=== PATIENT | female | born 1955 | race Caucasian/White ===

== ENCOUNTER 2019-02-07 15:49 | Emergency (ER) | payer BC, MEDICARE, SELFPAY ==
[2019-02-07] VITALS (22 sets, daily range): BP systolic 67–103; BP diastolic 34–72; PULSE 51–62; RESP 11–169; TEMP 35.4–37.1; O2SAT 82–100; BMI 42.2
--- NOTE | 2019-02-07 15:57 | EKG12_ITS ---
Test Reason : SOB Blood Pressure : / mmHG Vent. Rate : 051 BPM Atrial Rate : 051 BPM P-R Int : 180 ms QRS Dur : 080 ms QT Int : 504 ms P-R-T Axes : 039 016 038 degrees QTc Int : 464 ms Sinus bradycardia Low voltage QRS Possible Inferior infarct , age undetermined Cannot rule out Anterior infarct , age undetermined Abnormal ECG Confirmed by SINDHU PACHECO ([id number]), development editor JEREMY HUSSEIN ([id number]) on 02/13/2019 12:11:52 PM Referred By: Confirmed By:SINDHU PACHECO
--- NOTE | 2019-02-07 15:57 | RAD_ITS ---
STUDY: X-RAY CHEST REASON FOR EXAM: Female, 63 years old. Unresponsive TECHNIQUE: AP portable COMPARISON: None. FINDINGS: There is mild pulmonary interstitial edema.. There is no demonstrated pleural abnormality. Heart is enlarged.. Normal mediastinum and dante. Normal visualized pulmonary arteries. Mildly calcified aortic arch and descending thoracic aorta. Dorsal spine demonstrates scoliosis and degenerative change. Normal visualized ribs, clavicles, and shoulders. There is no demonstrated abnormality of the visualized soft tissue structures of the upper abdomen. RAD/Chest 1 View (Portable) IMPRESSION: Mild pulmonary vascular congestion. Electronically Signed: Vineet Fournier MD at 16:38 EDT , Service support ,
[2019-02-07] MEDS: 0.9% Normal Saline 1,000 ML 1000 ML IV ×3 (16:16→17:02)
[2019-02-07] MEDS: Ondansetron 4 MG/2 ML Vial IV (16:17)
[2019-02-07 16:23] LABS: Absolute Lymphocyte Count 2.29 X10^3/uL (0.83-4.51); Absolute Neutrophil Count 15.9 X10^3/uL (2.0-7.7); Basophil# 0.03 X10^3/uL; Basophil% 0.2 % (0-1); Eosinophil# 0.01 X10^3/uL; Eosinophils% 0.1 % (0-5); Hematocrit 17.8 % (37-47); Lymphocyte # 2.29 X10^3/ul (4.0); Lymphocyte % 11.5 % (19-41); Mean Corp Hgb Conc 29.8 g/dL (32-36); Mean Corpuscular Hgb 30.8 pg (27.0-32.0); Mean Corpuscular Volume 103.5 fL (81-99); Mean Platelet Vol. 10.5 fl (6.2-12.0); Monocyte# 0.83 X10^3/uL; Monocyte% 4.2 % (0-10); NRBC Flagged by Analyzer 0.4 % (0-5); Neutrophil # 15.86 X10^3/uL (2.7-7.7); Neutrophil % 79.2 % (47-70); POSITIVE COUNT YES; Platelet Count 283 K/mm3 (150-450); RBC Distribution Width CV 14.2 % (11.6-14.6); Red Blood Count 1.72 M/mm3 (4.2-5.4)
[2019-02-07 16:25] LABS: Differential Indicated SCAN CRITERIA MET
[2019-02-07 16:26] LABS: Hemoglobin 5.3 g/dL (12.0-15.0)
[2019-02-07 16:27] LABS: International Normalized Ratio 1.4; Prothrombin Time (Protime)PT. 17.2 SECONDS (11.7-14.9)
[2019-02-07 16:28] LABS: Partial Thromboplast Time 26.1 Seconds (24.1-36.2)
[2019-02-07 16:39] LABS: Bacteria 0 SEEN /hpf (None Seen); Mucous, Urine 0 SEEN /hpf (<or=2+); Red Blood Cells-Urine 0 SEEN /hpf (0-5); White Blood Cells 0 SEEN /hpf (0-5)
[2019-02-07 16:41] LABS: Lactic Acid 13.2 mmol/L (0.4-2.0)
[2019-02-07 16:43] LABS: AST(SGOT) 144 U/L (15-37); Alanine Aminotransfer ALT/SGPT 153 U/L (13-56); Albumin, Serum 3.1 g/dL (3.2-5.0); Alkaline Phosphatase 56 U/L (45-117); Anion Gap 19 (5-15); BUN 82 mg/dL (7-18); BUN/Creat Ratio 28.3 RATIO (10-20); Bilirubin, Direct 0.23 mg/dL (0.00-0.30); Calcium,Total 8.7 mg/dL (8.5-10.1); Chloride 106 mmol/L (98-107); EST Glomerular Filtration Rate 17 mL/min (>60); Est Glom Filt Rate - Afr Amer 21 mL/min (>60); Globulin 3.1 g/dL (2.2-4.2); Glucose 347 mg/dL (74-106); Lipase 243 U/L (73-393); Potassium 5.7 mmol/L (3.5-5.1); Protein, Total 6.2 g/dL (6.4-8.2); Sodium Level 139 mmol/L (136-145)
--- NOTE | 2019-02-07 16:44 | ED.RN ---
LAB CALLED WITH CRITICAL VALUES FOR PT. LACTIC ACID 13.[address] VALLEJO INFORMED.
[2019-02-07 16:48] LABS: Differential Comment SCANNED
[2019-02-07 16:53] LABS: Color, Urine Yellow (Yellow); Glucose, Dipstick 50 mg/dl (Normal); Ketone-Dipstick Negative (Negative); Leukocyte Esterase-Dipstick Negative /ul (Negative); Nitrite-Dipstick Negative (Negative); Occult Blood-Urine Negative /ul (Negative); Protein-Dipstick 15 mg/dl (Negative); Specific Gravity, Urine 1.015 (1.002-1.030); Urine Bilirubin Dipstick Negative (Negative); Urine Clarity Sl. Cloudy (Clear); Urine Urobilinogen Normal (Normal)
[2019-02-07] MEDS: 0.9% Normal Saline 1,000 ML 999 ML IV ×2 (17:03→18:39)
[2019-02-07 17:04] LABS: Amorphous Sediment 1+ URATE; Squamous Epithelial Cells - UA 0-5 SEEN /hpf (5-10)
--- NOTE | 2019-02-07 17:14 | ED.VISSUMM ---
- ER Visit Summary Date of Service: 02/07/19 Chief Complaint: Unresponsive History of Present Illness: The patient is a 63 F who presents emergency department following an unresponsive episode. Patient reports 3 days of nausea vomiting diarrhea. She denies blood in the vomit but notes the stool is black. Today her found her slumped on the couch and was having difficulty keeping her awake and she was having difficulty mentating. She did not want to come by ambulance so family got in a car and drove her to urgent care. EMS was called for a possible unresponsive episode daughter is not sure if she did consciousness or not. EMS notes that she was hypotensive in the 70s with a heart rate in the 40s. She has a history of coronary artery disease and his heart stents therefore she is on Plavix and aspirin. She is also on a beta-reji. Also noted history of diabetes hypertension high cholesterol. She is a non-smoker and she does not drink alcohol. Physical Examination: Blood pressure 86/45 Septra 97.5 heart rate 60 respirations are 20 pulse ox 95% of the knee Gen: Well-nourished well-developed obese Head: Normocephalic atraumatic Eyes: Perrl EOMI pale conjunctiva ENT: TMs clear no rhinorrhea moist mucous membranes Neck: Supple no lymphadenopathy no JVD nontender CVS: Regular rate bradycardic rhythm no murmurs normal S1-S2 she has decreased capillary refill of the fingers and toes Respiratory: No distress clear to auscultation bilaterally chest nontender Abdomen: Soft nontender nondistended normal bowel sounds no masses Rectal: Black tarry heme positive stool Back: Nontender Extremity: Nontender no edema Skin: She is pale no rash Neuro: alert orientated ?3 patient is globally weak but moves all extremities Psych: Normal affect normal mood Test Results: White count of 20 hemoglobin 5.3. Platelets 283. Creatinine 2.9 BUN of 82 glucose 347 INR 1.4 PTT 26.1. Normal bilirubin. Troponin 0 0.594. Lactic acid 13.2. Chest x-ray negative. EKG sinus bradycardia at a rate of 51 without ectopy. Emergency Department Course and Treatment: Patient received 4 L of IV fluids I typed and crossed for 2 units. Patient was also placed on Protonix bolus and drip. I spoke with Dr. Malik from general surgery who recommends transfer to tertiary care. Patient is a [facility] patient I spoke with family and the patient and they agreed to transfer to [facility]. I contacted [facility] and we are currently awaiting acceptance/bed assignment. Despite over 4 L of fluids and being transfused red blood cells the patient has remained hypotensive. I attempted a right IJ ultrasound-guided central line did not have successful placement. Therefore a right femoral ultrasound-guided central line was placed without any difficulty. Dark blood nonpulsatile was with easily withdrawn from the ports and easily pushed saline flushes. Sutured into place and dressed. She was started on Levophed. Impression: 1. Upper GI bleed 2. Hypovolemic shock 3. Acute renal failure 4. Elevated troponin 5. Critical care time 35 minutes. 6. Right femoral central line by emergency physician This note was generated with [employer] dictation software. It may contain incorrect words, spelling, and punctuation that were not noted in review of the chart prior to signing ED Disposition - Plan for ED Patient: Disposition: [facility] Referrals: Casey Barlow MD [Primary Care Provider] -
--- NOTE | 2019-02-07 17:55 | ED.RN ---
verbal order received from Dr Lopez to run both units of PRBCs at same time.
--- NOTE | 2019-02-07 18:17 | ED.RN ---
no transfusion reaction noted after 15 minutes of first unit infusing. Second unit started per Dr Lopez
--- NOTE | 2019-02-07 18:32 | ED.RN ---
no transfusion reaction noted after 15 minutes of second unit transfusing. Both PRBC infusions increased, will continue to monitor.
[2019-02-07] MEDS: 0.9% Normal Saline 1,000 ML 250 ML IV (19:44)
--- NOTE | 2019-02-07 20:13 | ED.RN ---
Pt left ED at 1950 with both units of PRBC still infusing with transport staff.
--- NOTE | 2019-02-07 20:18 | ED.RN ---
[facility] called and update given to Kimberly HOGAN of the new triple lumen central line placement and start of levophed.
[2019-02-07 20:19] LABS: Reflex Lactate? Y
[2019-02-08 10:16] LABS: Pathologist Review Reviewed
== END 2019-02-07 19:50 | disposition short-term general hospital (02) ==
LOC: ED 16:21
PROVIDERS: Emergency Provider Emergency Medicine; Family Provider Internal Medicine; PCP Internal Medicine
DX: K92.2 Gastrointestinal hemorrhage, unspecified (principal); R57.1 Hypovolemic shock; N17.9 Acute kidney failure, unspecified; I25.10 Atherosclerotic heart disease of native coronary artery without angina pectoris; I10 Essential (primary) hypertension; E78.00 Pure hypercholesterolemia, unspecified; E11.9 Type 2 diabetes mellitus without complications; Z79.02 Long term (current) use of antithrombotics/antiplatelets; Z79.82 Long term (current) use of aspirin; Z95.5 Presence of coronary angioplasty implant and graft; E66.9 Obesity, unspecified; Z79.84 Long term (current) use of oral hypoglycemic drugs
CPT/HCPCS: 36430; 36556; 51702; 71045; 80048; 80076; 81001; 82274; 83605; 83690; 84484; 85025; 85610; 85730; 86850; 86900; 86901; 86920; 86922; 93005; 96361; 96365; 96366; 96375; 99285; J7030; J7040; J7050; P9016; A4216; C1751; J2405; J3490

== ENCOUNTER 2019-03-01 13:50 | Inpatient (IN) | payer BC, MEDICARE, SELFPAY ==
[2019-02-07 15:50] VITALS: BMI 42.2
[2019-03-01 14:05] VITALS: PULSE 80; O2SAT 96
[2019-03-01 14:21] VITALS: BP 180/85; PULSE 88; RESP 20; TEMP 36.8; O2SAT 96; BMI 43.0
[2019-03-01 14:39] VITALS: BMI 43.1
[2019-03-01 16:11] LABS: Bedside Glucose 147 mg/dL (70-110)
[2019-03-01] MEDS: Insulin Lispro 100 UNIT/ML INSULN.PEN 22 UNIT SC (17:35)
[2019-03-01] MEDS: Insulin Lispro 100 UNIT/ML INSULN.PEN SC ×2 (17:36→21:51)
[2019-03-01] MEDS: guaiFENesin 600 MG Tablet 1200 MG PO (17:37)
[2019-03-01] MEDS: BRIMONIDINE 0.2% 5ML BOTTLE 1 DRP LEFT EYE (17:50)
[2019-03-01] MEDS: Dorzolamide HCL/Timolol 10 ml Bottle 1 DRP LEFT EYE (17:50)
--- NOTE | 2019-03-01 20:35 | NURSING ---
Patient's Daughter and Son in law talked to this nurse about patient's breathing at night. According to family she has been monitored and that her O2 will drop into the low 50's at night and patient has to be awaken to get O2 levels to increase. Dr. Pinon notified of this. Continuous pulsox ordered.
[2019-03-01] MEDS: Atorvastatin Calcium 10 MG Tablet PO (20:52)
[2019-03-01] MEDS: Labetalol 200 MG Tablet PO (20:52)
[2019-03-01] MEDS: MELATONIN 3 MG TABLET PO (20:52)
[2019-03-01] MEDS: Latanoprost 0.005% 1 Bottle 1 DRP LEFT EYE (20:56)
[2019-03-01 21:35] LABS: Bedside Glucose 198 mg/dL (70-110)
--- NOTE | 2019-03-01 21:40 | RAD_ITS ---
STUDY: X-RAY - ABDOMEN/PELVIS REASON FOR EXAM: Female, 63 years old. Constipation TECHNIQUE: KUB COMPARISON: None. FINDINGS: Normal visualized lung bases. There is moderate colonic fecal load. There is mild distention of the stomach. There is no evidence for bowel obstruction.. There is no demonstrated free abdominal air. The visualized liver, spleen and kidneys are grossly normal in size and morphology. Normal soft tissue structures. There are degenerative changes of the lumbar spine and pubic symphysis. There is lumbar spine levoscoliosis. RAD/Abdomen Single View IMPRESSION: Moderate colonic fecal load Mild distention of the stomach Degenerative changes of the lumbar spine and pubic symphysis Lumbar spine levoscoliosis Electronically Signed: London Sales, at 5:00 EDT Tel , Service support ,
--- NOTE | 2019-03-01 21:43 | HP.PCM_ITS ---
Problem List (1) Debility Status: Acute (2) Coronary artery disease Status: Chronic (3) Diabetes mellitus Status: Chronic (4) Hyperlipidemia Status: Chronic (5) Obstructive sleep apnea Status: Chronic (6) Body mass index (BMI) 40.0-44.9, adult Status: Chronic (7) Chronic diastolic (congestive) heart failure Status: Chronic (8) Glaucoma Status: Chronic (9) Asthma Status: Chronic (10) Acute respiratory failure Status: Acute (11) Unresponsive Status: Acute (12) Gastrointestinal bleed Status: Acute (13) Acute kidney injury Status: Acute (14) Anemia Status: Acute (15) NSTEMI (non-ST elevated myocardial infarction) Status: Acute (16) Hypovolemic shock Status: Acute (17) PEA (Pulseless electrical activity) Status: Acute (18) Diabetic ketoacidosis Status: Acute (19) Cardiac shock syndrome Status: Acute (20) Aspiration pneumonia Status: Acute (21) E. coli UTI Status: Acute History of Present Illness Date of Admission: 03/01/19 Chief Complaint: Here for rehabilitation, strengthening, prior to discharge home with . The patient is a 63 year old Female with below past medical history presented to [facility] Emergency Department 02/07/2019 with unresponsiveness. 02/07/2019 EKG sinus bradycardia, low voltage QRS, possible inferior infarct, age undetermined, cannot rule out anterior infarct, age undetermined. 02/07/2019 Chest X-ray mild pulmonary vascular congestion. Unresponsive episode, 3 days of nausea, vomiting, diarrhea. Stool black, found slumped on couch. Blood pressure 70, heart rate 40, Stool positive for blood. WBC 20, Hemoglobin 5.3, Cr 2.9, BUN 82, Glucose 347. INR 1.4, Troponin 0.594, Lactic acid 13.2. 4 liters IV fluids, type and cross 2 units PRBC, Protonix bolus, then drip. Hypotensive after 4 liters IV fluids, 2 units PRBC transfusion. Right femoral line placed, Levophed started. Transfer to [facility]. 02/07/2019 Admit to [facility]. Hemoglobin stable after 2 units PRBC transfusion. EGD negative for bleeding source. 02/10/2019 Discharged from [facility]. 02/16/2019 Gassy abdominal pain, Glucose 400, BP 65/45. 02/16/2019 [place] [facility]. PEA arrest x 2, CPR, Epi x 2, Atropine given. Levophed to maintain blood pressure 110 systolic. Intubated, transfused trauma blood. 02/18/2019 Admit to [facility] MICU. Treated for DKA with insulin protocol. 02/19/2019 CT chest showed aspiration pneumonia. 02/20/2019 E. Coli Urinary tract infection treated with Ceftriaxone. 02/21/2019 Transfused 1 unit PRBC. 02/22/2019 Amlodipine 5MG added for hypertension. 02/24/2019 Fever 38.2, Empiric Cefepime, Flagyl. CT chest showed improvement of perihilar, basilar opacities. 02/26/2019 Finished Cefepime. 02/28/2019 PET perfusion/stress abnormal. Recommend outpatient cardiac catheterization. 03/01/2019 Admit to TCU with debility, here for rehabilitation, strengthening, prior to discharge home with . Past Medical History Past Medical History (Chronic Problems): Chronic Problems Coronary artery disease (Chronic) Diabetes mellitus (Chronic) Hyperlipidemia (Chronic) Obstructive sleep apnea (Chronic) Body mass index (BMI) 40.0-44.9, adult (Chronic) Chronic diastolic (congestive) heart failure (Chronic) Glaucoma (Chronic) Asthma (Chronic) Allergies amoxicillin Allergy (Verified 02/07/19 15:55) Hives Sulfa (Sulfonamide Antibiotics) Allergy (Verified 02/07/19 15:55) Hives quinapril [From Accupril] Adverse Reaction (Verified 02/07/19 15:55) Other rosiglitazone [From Avandia] Adverse Reaction (Verified 02/07/19 15:55) Other Home Medications: Ambulatory Orders Medication Instructions Recorded Albuterol Inhaler [Ventolin Hfa 2 puff INHALATION Q4H PRN PRN 05/29/16 (SP)] Aspirin [Aspirin, Baby] 1 tablet PO DAILY 05/29/16 Brimonidine Tartrate 0.2% 1 drop LEFT EYE BID 05/29/16 [Brimonidine 0.2% 5Ml Bottle] Centrum Silver Tablet 1 tab PO DAILY 05/29/16 Cholecalciferol (Vitamin D3) 2 tab PO DAILY 05/29/16 [Vitamin D3] Clopidogrel Bisulfate [Plavix] 75 mg PO DAILY 05/29/16 Dorzolamide HCl/Timolol Maleat 1 drop LEFT EYE Q12H PRN 05/29/16 [Dorzolamide-Timolol Eye Drops] Folic Acid 1 mg PO DAILY@0800 05/29/16 Insulin Glargine,Hum.rec.anlog 55 units SQ QHS 05/29/16 [Lantus] Latanoprost 0.005% [Xalatan 1 drop LEFT EYE QHS 05/29/16 Opthalmic] Atorvastatin Calcium [Lipitor] 10 mg PO QHS 02/07/19 Furosemide 40 mg PO DAILY 02/07/19 Liraglutide [Victoza 3-Roman] 1.8 mg SUBCUT DAILY 02/07/19 Losartan Potassium [Cozaar] 100 mg PO DAILY 02/07/19 Amlodipine Besylate [Norvasc] 10 mg PO DAILY 03/01/19 Guaifenesin [Mucinex] 1,200 mg PO Q12H 03/01/19 Insulin Lispro [Humalog KwikPen] 14 unit SQ BREAKFAST 03/01/19 Insulin Lispro [Humalog KwikPen] 22 unit SQ 1200,1700 03/01/19 Labetalol [Trandate] 200 mg PO Q8H 03/01/19 Melatonin 3 mg PO QHS 03/01/19 Pantoprazole Sodium [Protonix] 40 mg PO DAILY 03/01/19 Polyethylene Glycol 3350 [Miralax] 17 gm PO DAILY 03/01/19 Sennosides [Senna] 8.6 mg PO BID 03/01/19 Sodium Chloride 0.65% [[place] Nasal 2 spray NASAL BID PRN PRN 03/01/19 [place]] Sodium Chloride For Inhalation 4 ml IH BID 03/01/19 [Hyper-Russell] Timolol 0.5% [Timoptic] 1 drp LEFT EYE BID 03/01/19 Triamcinolone Acetonide [Nasacort 2 spray NASAL DAILY 03/01/19 Aq Nasal [place]] Surgical History: angioplasty - stent x 4., cataract, - - , multiple eye surgeries. 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 Lives: Spouse/ Significant Other Smoking Status: Never smoker Tobacco Use: Non-smoker Alcohol: None Drugs: None - *Family History Maternal History Items: No pertinent history Paternal History Items: No pertinent history Review of Systems Constitutional: Denies: Chills, Fever, Weight Change HEENT: Denies: Head Aches, Sinus Congestion, Sinus Drainage Cardiovascular: Denies: Chest Pain, Palpitations Respiratory: Denies: Cough, Shortness of breath at rest, Sputum production Gastrointestinal: Denies: Abdominal Pain, Nausea, Vomiting Genitourinary: Denies: Dysuria Musculoskeletal: Denies: Joint Pain, Joint Tenderness Skin: Denies: Rash, Wounds Neurological: Denies: Numbness, Tingling, Focal weakness Psychiatric: Denies: Anxiety, Depression, Homicidal Ideations, Suicidal Ideations Hematologic/ Lymphatic: Denies: Easy Bruising, Easy Bleeding VTE Information - Inpt Only VTE Present on Admission: No VTE Mechan Device Prophylaxis: Knee High SHADIA Hose VTE Pharm Prophylaxis ordered?: No Reason prophylaxis not ordered:: Medical Contraindication Patient Problems: Active and Suspected Problems Debility (Acute) Acute respiratory failure (Acute) Unresponsive (Acute) Gastrointestinal bleed (Acute) Acute kidney injury (Acute) Anemia (Acute) NSTEMI (non-ST elevated myocardial infarction) (Acute) Hypovolemic shock (Acute) PEA (Pulseless electrical activity) (Acute) Diabetic ketoacidosis (Acute) Cardiac shock syndrome (Acute) Aspiration pneumonia (Acute) E. coli UTI (Acute) - Physical Exam Vitals/I&O's: Vital Signs Temp Pulse Resp BP Pulse Ox 98.3 F 88 20 H 180/85 H 96 03/01/19 14:21 03/01/19 14:21 03/01/19 14:21 03/01/19 14:21 03/01/19 14:21 Oxygen Flow Rate (L/min) 3 Oxygen Delivery Method Nasal Cannula Weight: 103.419 kg Body Mass Index (BMI) 43.0 Intake and Output for Last 24 Hours 02/27/19 02/28/19 03/01/19 23:59 23:59 23:59 Intake Total 120 / 120 Balance 120 / 120 General: Alert, Oriented x3, Cooperative HEENT: Atraumatic, PERRLA, EOMI, Normocephalic Neck: Supple, No JVD, Negative Carotid Bruits Lungs: Clear to auscultation, Normal air movement Cardiovascular: Regular rate, No murmurs Abdomen: Bowel Sounds Present, Soft, Non Tender, Distended Extremities: No edema, Capillary Refill Less than 3 Seconds Skin: No rashes, No breakdown Musculoskeletal: No Tenderness to Palpation of Joints or Extremities Neurological: Cranial nerves II-XII grossly intact Psych/Mental Status: Normal Affect, Appropriate Laboratory Results 03/01/19 16:04: POC Glucose 147 H 03/01/19 21:32: POC Glucose 198 H Current Medications Albuterol Sulfate (Ventolin Hfa (Sp)) 2 puff INHALATION Q4H PRN PRN PRN Reason: SOB &/OR WHEEZING Amlodipine Besylate (Norvasc) 10 mg PO DAILY [facility] Aspirin ([facility]in, Baby) [facility] Atorvastatin Calcium (Lipitor) 10 mg PO QHS [facility] Last Admin: 03/01/19 20:52 Dose: 10 mg Documented by: Brimonidine Tartrate (Brimonidine 0.2% 5ml Bottle) 1 drop LEFT EYE BID [facility] Last Admin: 03/01/19 17:50 Dose: 1 drop Documented by: Cholecalciferol (Vitamin D) 2,000 unit PO DAILY [facility] Dorzolamide/Timolol (Cosopt Opth Drops) 1 drop LEFT EYE BID [facility] Last Admin: 03/01/19 17:50 Dose: 1 drop Documented by: Fluticasone Propionate (Flonase Nasal [place]) 2 spray NASAL DAILY [facility] Folic Acid (Folic Acid) 1 mg PO DAILY@0800 [facility] Furosemide (Lasix) 40 mg PO DAILY [facility] Guaifenesin (Mucinex) 1,200 mg PO Q12 [facility] Last Admin: 03/01/19 17:37 Dose: 1,200 mg Documented by: Insulin Glargine (Lantus (Bkc)) 55 units SC QHS [facility] Insulin Human Lispro (Humalog Kwikpen (Bkc)) 14 unit SC BREAKFAST [facility] Insulin Human Lispro (Humalog Kwikpen (Bkc)) 22 unit SC 1200,1700 [facility] Last Admin: 03/01/19 17:35 Dose: 22 u Documented by: Insulin Human Lispro (Humalog Kwikpen (Bkc)) 0 unit SC ACHS [facility]; Protocol Last Admin: 03/01/19 17:36 Dose: 1 u Documented by: Labetalol HCl (Trandate) 200 mg PO Q8 [facility] Last Admin: 03/01/19 20:52 Dose: 200 mg Documented by: Latanoprost (Xalatan Opthalmic) 1 drop LEFT EYE QHS [facility] Last Admin: 03/01/19 20:56 Dose: 1 drop Documented by: Losartan Potassium (Cozaar) 100 mg PO DAILY [facility] Melatonin (Melatonin) 3 mg PO QHS [facility] Last Admin: 03/01/19 20:52 Dose: 3 mg Documented by: Multivitamins/Minerals (Multivitamin With Minerals) 1 tablet PO DAILY@0800 [facility] Pantoprazole Sodium (Protonix) 40 mg PO DAILY [facility] Polyethylene Glycol (Miralax) 17 gm PO DAILY [facility] Senna (Senokot) 1 tablet PO BID [facility] Last Admin: 03/01/19 17:38 Dose: Not Given Documented by: Sodium Chloride ([place] Nasal [place]) 2 spray NASAL BID PRN PRN PRN Reason: dry nares Sodium Chloride (Sodium Chl 3ml) 3 ml INHALATION BID.RT RORY Tuberculin PPD (Tubersol, Aplisol, Ppd) 5 tu ID [id number] ONE Stop: 03/02/19 10:01 Tuberculin PPD (Tubersol, Aplisol, Ppd) 5 tu ID [id number] ONE Stop: 03/09/19 10:01 Assessment/Plan All Active Problems Debility (Acute) Acute respiratory failure (Acute) Unresponsive (Acute) Gastrointestinal bleed (Acute) Acute kidney injury (Acute) Anemia (Acute) NSTEMI (non-ST elevated myocardial infarction) (Acute) Hypovolemic shock (Acute) PEA (Pulseless electrical activity) (Acute) Diabetic ketoacidosis (Acute) Cardiac shock syndrome (Acute) Aspiration pneumonia (Acute) E. coli UTI (Acute) 63 year old female with below past medical history hospitalized after PEA arrest secondary to hypovolemic shock from gastrointestinal bleed, requiring intubation, complicated by NSTEMI, E. Coli UTI, aspiration pneumonia, acute kidney injury, diabetic ketoacidosis, admitted to TCU with debility, here for rehabilitation, strengthening, prior to discharge home with . * Debility - PT/OT. * Pain - Tylenol 1000MG Q6H PRN pain (1-10) * Bowel - Miralax 17GM daily, Senna/colace 2 tablets BID, Dulcolax 10MG daily PRN. * Pneumonia vaccination - Administer Prevnar 13 and/or Pneumovax 23 as necessary. * DVT prophylaxis - Hold, recent life threatening GI bleed. * Shortness of breath - Albuterol 2 puffs Q4H PRN. * Hypertension - Labetalol 200MG Q8H, Losartan 100MG daily, Amlodipine 10MG daily. * Coronary Artery Disease - Labetalol 200MG Q8H, Losartan 100MG daily, Aspirin 81MG daily, stress test abnormal, need heart catheterization as outpatient. * Hyperlipidemia - Atorvastatin 10MG QHS. * Glaucoma - Brimonidine 1 GTT OS BID, Cosopt 1 GTT OS BID, Xalatan 1 GTT OS QHS. * Vitamin D deficiency - D3 2000IU daily. * Allergic Rhinitis - Flonase nasal spray 2 sprays daily, [place] Nasal [place] 2 sprays BID PRN. * Folate deficiency - Folic Acid 1MG daily. * Chronic diastolic heart failure - Labetalol 200MG Q8H, Losartan 100MG daily, Lasix 40MG daily. * Congestion - Mucinex 1200MG Q12H, Sodium Chloride 3ML nebulized BID. * Diabetes Mellitus - Lantus 55 units QHS, Humalog 14, 22, 22, monitor sugars. * Insomnia - Melatonin 3MG QHS. * Nutrition - MVI daily. * GERD - Pantoprazole 40MG daily. * Obstructive sleep apnea - PAP at night.
[2019-03-01 22:05] VITALS: O2SAT 98
--- NOTE | 2019-03-01 22:05 | CPS ---
Continuous pulse ox placed on pt left hand per order. Assisted pt putting home pap unit on. 4L bleed in hooked up and water chamber filled. No further needs at this time. Nursing aware.
[2019-03-02] VITALS (11 sets, daily range): BP systolic 135–156; BP diastolic 49–64; PULSE 75–90; RESP 18–20; TEMP 36.6–36.9; O2SAT 90–98
[2019-03-02] MEDS: Pantoprazole Sodium 40 MG Tablet PO (03:20)
[2019-03-02] MEDS: amLODIPine 10 MG Tablet PO (03:20)
[2019-03-02] MEDS: guaiFENesin 600 MG Tablet 1200 MG PO ×2 (03:20→17:31)
[2019-03-02] MEDS: Losartan Potassium 100 MG Tablet PO (03:20)
[2019-03-02] MEDS: Labetalol 200 MG Tablet PO ×3 (03:20→21:19)
[2019-03-02] MEDS: Fluticasone 0.05% 1 SPRAY NASAL.SRY 2 SPRAY NASAL (03:21)
[2019-03-02] MEDS: BRIMONIDINE 0.2% 5ML BOTTLE 1 DRP LEFT EYE ×2 (03:28→17:30)
[2019-03-02] MEDS: Dorzolamide HCL/Timolol 10 ml Bottle 1 DRP LEFT EYE ×2 (03:28→17:33)
[2019-03-02 05:52] LABS: Absolute Lymphocyte Count 1.95 X10^3/uL (0.83-4.51); Absolute Neutrophil Count 6.4 X10^3/uL (2.0-7.7); Basophil# 0.05 X10^3/uL; Basophil% 0.5 % (0-1); Eosinophils% 3.1 % (0-5); Hematocrit 25.4 % (37-47); Hemoglobin 7.8 g/dL (12.0-15.0); Lymphocyte # 1.95 X10^3/ul (4.0); Lymphocyte % 20.2 % (19-41); Mean Corp Hgb Conc 30.7 g/dL (32-36); Mean Corpuscular Hgb 30.1 pg (27.0-32.0); Mean Corpuscular Volume 98.1 fL (81-99); Mean Platelet Vol. 9.4 fl (6.2-12.0); Monocyte# 0.81 X10^3/uL; Monocyte% 8.4 % (0-10); NRBC Flagged by Analyzer 0 % (0-5); Neutrophil # 6.38 X10^3/uL (2.7-7.7); Neutrophil % 66.3 % (47-70); Platelet Count 376 K/mm3 (150-450); RBC Distribution Width CV 16.5 % (11.6-14.6); RBC Distribution Width SD 58.6 fl (35.1-43.9); Red Blood Count 2.59 M/mm3 (4.2-5.4); White Blood Count 9.6 K/mm3 (4.4-11.0)
[2019-03-02 06:08] LABS: Anion Gap 5 (5-15); BUN 20 mg/dL (7-18); Chloride 103 mmol/L (98-107); EST Glomerular Filtration Rate 59 mL/min (>60); Est Glom Filt Rate - Afr Amer 71 mL/min (>60); Estimated Creatinine Clearance 42.32 ml/min; Glucose 139 mg/dL (74-106); Potassium 4.4 mmol/L (3.5-5.1); Sodium Level 140 mmol/L (136-145)
[2019-03-02 06:36] LABS: Bedside Glucose 141 mg/dL (70-110)
[2019-03-02] MEDS: Furosemide 40 MG Tablet PO (06:42)
[2019-03-02] MEDS: Insulin Lispro 100 UNIT/ML INSULN.PEN 14 UNIT SC (08:50)
[2019-03-02] MEDS: Aspirin 81 MG TAB.CHEW PO (08:53)
[2019-03-02] MEDS: Folic Acid 1 MG Tablet PO (08:53)
[2019-03-02] MEDS: Multivitamins,Ther W-Minerals Tablet 1 TABLET PO (08:53)
[2019-03-02] MEDS: Iron Polysaccharide Complex 150 MG CAPSULE PO (09:35)
[2019-03-02] MEDS: Tuberculin,Purif.prot.deriv. 50 TU/ML Vial 5 ML ID (09:37)
[2019-03-02 11:26] LABS: Bedside Glucose 257 mg/dL (70-110)
[2019-03-02] MEDS: Insulin Lispro 100 UNIT/ML INSULN.PEN 22 UNIT SC ×2 (11:39→17:35)
[2019-03-02] MEDS: Sodium Cl For Inhalation 3 ML VIAL.NEB. INHALATION ×2 (14:29→21:50)
[2019-03-02 17:31] LABS: Bedside Glucose 291 mg/dL (70-110)
[2019-03-02] MEDS: Senna/Docusate Sodium 1 Tablet 2 TABLET PO (17:32)
[2019-03-02] MEDS: Latanoprost 0.005% 1 Bottle 1 DRP LEFT EYE (21:17)
[2019-03-02] MEDS: Atorvastatin Calcium 10 MG Tablet PO (21:18)
[2019-03-02] MEDS: MELATONIN 3 MG TABLET PO (21:19)
[2019-03-02 21:21] LABS: Bedside Glucose 257 mg/dL (70-110)
[2019-03-03] MEDS: Pantoprazole Sodium 40 MG Tablet PO (06:05)
[2019-03-03] MEDS: Furosemide 40 MG Tablet PO (06:05)
[2019-03-03] MEDS: amLODIPine 10 MG Tablet PO (06:05)
[2019-03-03] MEDS: Senna/Docusate Sodium 1 Tablet 2 TABLET PO (06:05)
[2019-03-03] MEDS: guaiFENesin 600 MG Tablet 1200 MG PO ×2 (06:05→17:21)
[2019-03-03] MEDS: Dorzolamide HCL/Timolol 10 ml Bottle 1 DRP LEFT EYE ×2 (06:09→17:18)
[2019-03-03] MEDS: Fluticasone 0.05% 1 SPRAY NASAL.SRY 2 SPRAY NASAL (06:10)
[2019-03-03] MEDS: BRIMONIDINE 0.2% 5ML BOTTLE 1 DRP LEFT EYE ×2 (06:17→17:21)
[2019-03-03 06:36] LABS: Bedside Glucose 114 mg/dL (70-110)
[2019-03-03 06:40] VITALS: PULSE 79; RESP 20; O2SAT 98
[2019-03-03] MEDS: Sodium Cl For Inhalation 3 ML VIAL.NEB. INHALATION ×2 (06:40→19:52)
[2019-03-03] MEDS: Losartan Potassium 100 MG Tablet PO (06:52)
[2019-03-03] MEDS: Labetalol 200 MG Tablet PO ×3 (06:52→21:19)
[2019-03-03] MEDS: Iron Polysaccharide Complex 150 MG CAPSULE PO (09:07)
[2019-03-03] MEDS: Folic Acid 1 MG Tablet PO (09:07)
[2019-03-03] MEDS: Aspirin 81 MG TAB.CHEW PO (09:08)
[2019-03-03] MEDS: Multivitamins,Ther W-Minerals Tablet 1 TABLET PO (09:08)
[2019-03-03 11:36] LABS: Bedside Glucose 275 mg/dL (70-110)
[2019-03-03] MEDS: Insulin Lispro 100 UNIT/ML INSULN.PEN 22 UNIT SC ×2 (11:58→17:18)
--- NOTE | 2019-03-03 12:22 | PHA.CONS_ITS ---
<BandarNika - Last Filed: 03/03/19 12:22> Progress Note - Pharmacy Subjective: TCU Admission Objective: Allergies amoxicillin Allergy (Verified 02/07/19 15:55) Hives Sulfa (Sulfonamide Antibiotics) Allergy (Verified 02/07/19 15:55) Hives quinapril [From Accupril] Adverse Reaction (Verified 02/07/19 15:55) Other rosiglitazone [From Avandia] Adverse Reaction (Verified 02/07/19 15:55) Other Current Medications Generic Name Dose Route Start Last Admin Trade Name Freq PRN Reason Stop Dose Admin Acetaminophen 1,000 mg 03/01/19 22:13 Tylenol PO Q6H PRN PRN Pain Score 1-10/10 Albuterol Sulfate 2 puff 03/01/19 15:24 03/03/19 09:14 Ventolin Hfa (Sp) INHALATION 2 puff Q4H PRN PRN Administration SOB &/OR WHEEZING Amlodipine Besylate 10 mg 03/02/19 06:00 03/03/19 06:05 Norvasc PO 10 mg DAILY RORY Administration Aspirin 81 mg 03/02/19 08:00 03/03/19 09:08 Aspirin, Baby PO 81 mg DAILYCM RORY Administration Atorvastatin Calcium 10 mg 03/01/19 22:00 03/02/19 21:18 Lipitor PO 10 mg QHS RORY Administration Bisacodyl 10 mg 03/01/19 22:13 Dulcolax PO DAILY PRN Constipation Brimonidine Tartrate 1 drop 03/01/19 18:00 03/03/19 06:17 Brimonidine 0.2% 5ml Bottle LEFT EYE 1 drop BID RORY Administration Cholecalciferol 2,000 unit 03/02/19 06:00 03/03/19 06:05 Vitamin D PO 2,000 unit DAILY RORY Administration Dorzolamide/Timolol 1 drop 03/01/19 18:00 03/03/19 06:09 Cosopt Opth Drops LEFT EYE 1 drop BID RORY Administration Fluticasone Propionate 2 spray 03/02/19 06:00 03/03/19 06:10 Flonase Nasal [place] NASAL 2 spray DAILY RORY Administration Folic Acid 1 mg 03/02/19 08:00 03/03/19 09:07 Folic Acid PO 1 mg DAILY@0800 RORY Administration Furosemide 40 mg 03/02/19 06:00 03/03/19 06:05 Lasix PO 40 mg DAILY RORY Administration Guaifenesin 1,200 mg 03/01/19 18:00 03/03/19 06:05 Mucinex PO 1,200 mg Q12 RORY Administration Insulin Glargine 55 units 03/01/19 22:00 03/02/19 21:26 Lantus ([facility]) SC 55 u QHS RORY Administration Insulin Human Lispro 14 unit 03/02/19 08:00 03/03/19 09:09 Humalog Kwikpen ([facility]) SC Not Given BREAKFAST RORY Insulin Human Lispro 22 unit 03/01/19 17:00 03/03/19 11:58 Humalog Kwikpen ([facility]) SC 22 u 1200,1700 RORY Administration Labetalol HCl 200 mg 03/01/19 22:00 03/03/19 06:52 Trandate PO 200 mg Q8 RORY Administration Latanoprost 1 drop 03/01/19 22:00 03/02/19 21:17 Xalatan Opthalmic LEFT EYE 1 drop QHS RORY Administration Losartan Potassium 100 mg 03/02/19 06:00 03/03/19 06:52 Cozaar PO 100 mg DAILY RORY Administration Melatonin 3 mg 03/01/19 22:00 03/02/19 21:19 Melatonin PO 3 mg QHS RORY Administration Multivitamins/Minerals 1 tablet 03/02/19 08:00 03/03/19 09:08 Multivitamin With Minerals PO 1 tablet DAILY@0800 [facility] Administration Pantoprazole Sodium 40 mg 03/02/19 06:00 03/03/19 06:05 Protonix PO 40 mg DAILY RORY Administration Polyethylene Glycol 17 gm 03/02/19 06:00 03/03/19 06:38 Miralax PO Not Given DAILY RORY Polysaccharide Iron Complex 150 mg 03/02/19 09:00 03/03/19 09:07 Ferrex 150 PO 150 mg DAILYCM RORY Administration Senna/Docusate Sodium 2 tablet 03/02/19 06:00 03/03/19 06:05 Senokot-S, Jennifer-Colace PO 2 tablet BID RORY Administration Sodium Chloride 2 spray 03/01/19 15:24 Thomas Nasal [place] NASAL BID PRN PRN dry nares Sodium Chloride 3 ml 03/01/19 18:00 03/03/19 06:40 Sodium Chl 3ml INHALATION 3 ml BID.RT RORY Administration Tuberculin PPD 5 tu 03/09/19 10:00 Tubersol, Aplisol, Ppd ID 03/09/19 10:01 X1 ONE Problem List Debility (Acute) Coronary artery disease (Chronic) Diabetes mellitus (Chronic) Hyperlipidemia (Chronic) Obstructive sleep apnea (Chronic) Body mass index (BMI) 40.0-44.9, adult (Chronic) Chronic diastolic (congestive) heart failure (Chronic) Glaucoma (Chronic) Asthma (Chronic) Acute respiratory failure (Acute) Unresponsive (Acute) Gastrointestinal bleed (Acute) Acute kidney injury (Acute) Anemia (Acute) NSTEMI (non-ST elevated myocardial infarction) (Acute) Hypovolemic shock (Acute) PEA (Pulseless electrical activity) (Acute) Diabetic ketoacidosis (Acute) Cardiac shock syndrome (Acute) Aspiration pneumonia (Acute) E. coli UTI (Acute) Vital Signs Temp Pulse Resp BP Pulse Ox 98.5 F 79 20 H 148/49 H 98 03/02/19 16:00 03/03/19 06:40 03/03/19 06:40 03/02/19 16:00 03/03/19 06:40 Oxygen Flow Rate (L/min) 3.5 Oxygen Delivery Method Nasal Cannula Weight: 103.419 kg Body Mass Index (BMI) 43.0 Sodium 140 mmol/L (136-145) 03/02/19 05:05 Potassium 4.4 mmol/L (3.5-5.1) 03/02/19 05:05 Chloride 103 mmol/L (98-107) 03/02/19 05:05 Carbon Dioxide 32.0 mmol/L (21.0-32.0) 03/02/19 05:05 Anion Gap 5 (5-15) 03/02/19 05:05 BUN 20 mg/dL (7-18) H 03/02/19 05:05 Creatinine 1.00 mg/dL (0.55-1.02) 03/02/19 05:05 Est GFR (MDRD) Af Amer 71 mL/min (>60) 03/02/19 05:05 Est GFR (MDRD) Non-Af 59 mL/min (>60) L 03/02/19 05:05 BUN/Creatinine Ratio 20.0 RATIO (10-20) 03/02/19 05:05 Glucose 139 mg/dL (74-106) H 03/02/19 05:05 Assessment/Plan: 1. Pain: acetaminophen 1000mg PO Q6H PRN pain (-02/16). Please continue to monitor for pain. 2. CAD/CHF/hypertension: labetalol 200mg PO Q8H, losartan 100mg PO daily, amlodipine 10mg PO daily, aspirin 81mg PO DAILYCM, furosemide 40mg PO daily. Please continue to monitor BP, HR, renal function and electrolytes. Please monitor for S/S of bleeding with aspirin s/p recent GI bleed. *3. Hyperlipidemia: atorvastatin 10mg PO QHS. I could not find a lipid panel in the patient's chart. Please consider ordering a lipid panel now and then annually as clinically appropriate. LFTs slightly elevated but appropriate for continued use. Please continue to monitor for muscle pain. *4. Diabetes mellitus: insulin glargine 55units SC QHS, insulin lispro 14units SC at breakfast and 22units SC at 1200 and 1700. No A1c in patient's chart, please consider ordering an A1c now and then every 3 months as clinically appropriate. Please continue to monitor for hypoglycemia. 5. Shortness of breath: albuterol sulfate MDI 2 inhalations Q4H PRN SOB/WHEEZING. Please continue to monitor for SOB/wheezing. 6. Glaucoma: brimonidine tartrate 0.2% 1gtt OS BID, latanoprost 0.005% 1gtt OS QHS, dorzolamide/timolol 1gtt OS BID. Please continue to monitor for glaucoma. 7. Congestion: guaifenesin 1200mg PO Q12H, sodium chloride 3mL nebulization BID. Please continue to monitor for congestion. 8. GERD: pantoprazole 40mg PO daily. Please continue to monitor for GERD. 9. Allergic rhinitis: fluticasone 0.005% nasal spray 2 spray nasally daily and sodium chloride nasal spray 2 sprays nasally BID PRN dry nares. Please continue to monitor for allergic rhinitis. 10. Insomnia: melatonin 3mg PO QHS. Please continue to monitor for insomnia and confusion. *11. Overall Health Maintenance/Vitamin deficiencies: folic acid 1mg PO daily, multivitamin with minerals 1T PO DAILYCM, cholecalciferol 2000units PO daily. Please consider ordering a Vitamin D level now and then annually as clinically appropriate. 12. Anemia: Ferrex 150mg PO DAILYCM. Please continue to monitor hemoglobin. Psychotropic Medications: None Unnecessary Medications: None *Bowel Regimen: Miralax 17gm PO daily, senna/docusate 2T PO BID, bisacodyl 10mg PO daily PRN constipation. Patient has refused 2/2 doses of Miralax so far. If patient continues to refuse please consider changing to PRN constipation. Please continue to monitor for constipation and PRN use. Date of Note:: 03/03/19 - Provider Comments Provider responsibility: Provider responsible to enter orders to implement recommendations <John Pinon Chi - Last Filed: 03/03/19 13:46> Progress Note - Pharmacy Subjective: [] Objective: Allergies amoxicillin Allergy (Verified 02/07/19 15:55) Hives Sulfa (Sulfonamide Antibiotics) Allergy (Verified 02/07/19 15:55) Hives quinapril [From Accupril] Adverse Reaction (Verified 02/07/19 15:55) Other rosiglitazone [From Avandia] Adverse Reaction (Verified 02/07/19 15:55) Other Current Medications Generic Name Dose Route Start Last Admin Trade Name Freq PRN Reason Stop Dose Admin Acetaminophen 1,000 mg 03/01/19 22:13 Tylenol PO Q6H PRN PRN Pain Score 1-10/10 Albuterol Sulfate 2 puff 03/01/19 15:24 03/03/19 13:19 Ventolin Hfa (Sp) INHALATION 2 puff Q4H PRN PRN Administration SOB &/OR WHEEZING Amlodipine Besylate 10 mg 03/02/19 06:00 03/03/19 06:05 Norvasc PO 10 mg DAILY RORY Administration Aspirin 81 mg 03/02/19 08:00 03/03/19 09:08 Aspirin, Baby PO 81 mg DAILYCM RORY Administration Atorvastatin Calcium 10 mg 03/01/19 22:00 03/02/19 21:18 Lipitor PO 10 mg QHS RORY Administration Bisacodyl 10 mg 03/01/19 22:13 Dulcolax PO DAILY PRN Constipation Brimonidine Tartrate 1 drop 03/01/19 18:00 03/03/19 06:17 Brimonidine 0.2% 5ml Bottle LEFT EYE 1 drop BID RORY Administration Cholecalciferol 2,000 unit 03/02/19 06:00 03/03/19 06:05 Vitamin D PO 2,000 unit DAILY RORY Administration Dorzolamide/Timolol 1 drop 03/01/19 18:00 03/03/19 06:09 Cosopt Opth Drops LEFT EYE 1 drop BID RORY Administration Fluticasone Propionate 2 spray 03/02/19 06:00 03/03/19 06:10 Flonase Nasal [place] NASAL 2 spray DAILY RORY Administration Folic Acid 1 mg 03/02/19 08:00 03/03/19 09:07 Folic Acid PO 1 mg DAILY@0800 RORY Administration Furosemide 40 mg 03/02/19 06:00 03/03/19 06:05 Lasix PO 40 mg DAILY RORY Administration Guaifenesin 1,200 mg 03/01/19 18:00 03/03/19 06:05 Mucinex PO 1,200 mg Q12 RORY Administration Insulin Glargine 55 units 03/01/19 22:00 03/02/19 21:26 Lantus ([facility]) SC 55 u QHS RORY Administration Insulin Human Lispro 14 unit 03/02/19 08:00 03/03/19 09:09 Humalog Kwikpen ([facility]) SC Not Given BREAKFAST [facility] Insulin Human Lispro 22 unit 03/01/19 17:00 03/03/19 11:58 Humalog Kwikpen ([facility]) SC 22 u 1200,1700 RORY Administration Labetalol HCl 200 mg 03/01/19 22:00 03/03/19 13:19 Trandate PO 200 mg Q8 RORY Administration Latanoprost 1 drop 03/01/19 22:00 03/02/19 21:17 Xalatan Opthalmic LEFT EYE 1 drop QHS RORY Administration Losartan Potassium 100 mg 03/02/19 06:00 03/03/19 06:52 Cozaar PO 100 mg DAILY RORY Administration Melatonin 3 mg 03/01/19 22:00 03/02/19 21:19 Melatonin PO 3 mg QHS RORY Administration Multivitamins/Minerals 1 tablet 03/02/19 08:00 03/03/19 09:08 Multivitamin With Minerals PO 1 tablet DAILY@0800 RORY Administration Pantoprazole Sodium 40 mg 03/02/19 06:00 03/03/19 06:05 Protonix PO 40 mg DAILY RORY Administration Polyethylene Glycol 17 gm 03/02/19 06:00 03/03/19 06:38 Miralax PO Not Given DAILY RORY Polysaccharide Iron Complex 150 mg 03/02/19 09:00 03/03/19 09:07 Ferrex 150 PO 150 mg DAILYCM RORY Administration Senna/Docusate Sodium 2 tablet 03/02/19 06:00 03/03/19 06:05 Senokot-S, Jennifer-Colace PO 2 tablet BID RORY Administration Sodium Chloride 2 spray 03/01/19 15:24 Thomas Nasal [place] NASAL BID PRN PRN dry nares Sodium Chloride 3 ml 03/01/19 18:00 03/03/19 06:40 Sodium Chl 3ml INHALATION 3 ml BID.RT RORY Administration Tuberculin PPD 5 tu 03/09/19 10:00 Tubersol, Aplisol, Ppd ID 03/09/19 10:01 X1 ONE Problem List Debility (Acute) Coronary artery disease (Chronic) Diabetes mellitus (Chronic) Hyperlipidemia (Chronic) Obstructive sleep apnea (Chronic) Body mass index (BMI) 40.0-44.9, adult (Chronic) Chronic diastolic (congestive) heart failure (Chronic) Glaucoma (Chronic) Asthma (Chronic) Acute respiratory failure (Acute) Unresponsive (Acute) Gastrointestinal bleed (Acute) Acute kidney injury (Acute) Anemia (Acute) NSTEMI (non-ST elevated myocardial infarction) (Acute) Hypovolemic shock (Acute) PEA (Pulseless electrical activity) (Acute) Diabetic ketoacidosis (Acute) Cardiac shock syndrome (Acute) Aspiration pneumonia (Acute) E. coli UTI (Acute) Vital Signs Temp Pulse Resp BP Pulse Ox 98.5 F 104 H 20 H 148/49 H 99 03/02/19 16:00 03/03/19 13:20 03/03/19 06:40 03/02/19 16:00 03/03/19 13:20 Oxygen Flow Rate (L/min) 3.5 Oxygen Delivery Method Nasal Cannula Weight: 103.419 kg Body Mass Index (BMI) 43.0 Sodium 140 mmol/L (136-145) 03/02/19 05:05 Potassium 4.4 mmol/L (3.5-5.1) 03/02/19 05:05 Chloride 103 mmol/L (98-107) 03/02/19 05:05 Carbon Dioxide 32.0 mmol/L (21.0-32.0) 03/02/19 05:05 Anion Gap 5 (5-15) 03/02/19 05:05 BUN 20 mg/dL (7-18) H 03/02/19 05:05 Creatinine 1.00 mg/dL (0.55-1.02) 03/02/19 05:05 Est GFR (MDRD) Af Amer 71 mL/min (>60) 03/02/19 05:05 Est GFR (MDRD) Non-Af 59 mL/min (>60) L 03/02/19 05:05 BUN/Creatinine Ratio 20.0 RATIO (10-20) 03/02/19 05:05 Glucose 139 mg/dL (74-106) H 03/02/19 05:05 Assessment/Plan: Psychotropic Medications: Unnecessary Medications: Bowel Regimen: - Provider Comments Provider responsibility: Provider responsible to enter orders to implement recommendations Provider Comments to Recommendations by Pharmacy: Agree
[2019-03-03 13:20] VITALS: PULSE 104; O2SAT 99
[2019-03-03 15:28] VITALS: BP 141/51; PULSE 100; RESP 14; TEMP 37; O2SAT 95
[2019-03-03 16:46] LABS: Bedside Glucose 254 mg/dL (70-110)
[2019-03-03] MEDS: Sodium Chloride 0.65% 1 SPRAY SPRAY.BTL 2 SPRAY NASAL ×2 (17:24→21:18)
[2019-03-03 19:52] VITALS: PULSE 84; RESP 18
[2019-03-03 21:11] LABS: Bedside Glucose 304 mg/dL (70-110)
[2019-03-03] MEDS: Atorvastatin Calcium 10 MG Tablet PO (21:19)
[2019-03-03] MEDS: MELATONIN 3 MG TABLET PO (21:19)
[2019-03-03] MEDS: Latanoprost 0.005% 1 Bottle 1 DRP LEFT EYE (21:19)
[2019-03-03 21:30] VITALS: O2SAT 97
[2019-03-04] MEDS: BRIMONIDINE 0.2% 5ML BOTTLE 1 DRP LEFT EYE ×2 (06:26→17:19)
[2019-03-04] MEDS: Losartan Potassium 100 MG Tablet PO (06:27)
[2019-03-04] MEDS: Fluticasone 0.05% 1 SPRAY NASAL.SRY 2 SPRAY NASAL (06:27)
[2019-03-04] MEDS: Dorzolamide HCL/Timolol 10 ml Bottle 1 DRP LEFT EYE ×2 (06:27→17:21)
[2019-03-04] MEDS: Furosemide 40 MG Tablet PO (06:27)
[2019-03-04] MEDS: guaiFENesin 600 MG Tablet 1200 MG PO ×2 (06:28→17:24)
[2019-03-04] MEDS: Labetalol 200 MG Tablet PO ×3 (06:28→20:41)
[2019-03-04] MEDS: Pantoprazole Sodium 40 MG Tablet PO (06:28)
[2019-03-04] MEDS: amLODIPine 10 MG Tablet PO (06:28)
[2019-03-04 06:45] LABS: Bedside Glucose 237 mg/dL (70-110)
[2019-03-04 06:47] VITALS: PULSE 82; RESP 20; O2SAT 97
[2019-03-04] MEDS: Sodium Cl For Inhalation 3 ML VIAL.NEB. INHALATION ×2 (06:47→19:15)
[2019-03-04] MEDS: Sodium Chloride 0.65% 1 SPRAY SPRAY.BTL 2 SPRAY NASAL ×2 (07:35→20:50)
[2019-03-04] MEDS: Folic Acid 1 MG Tablet PO (07:40)
[2019-03-04] MEDS: Insulin Lispro 100 UNIT/ML INSULN.PEN 14 UNIT SC (07:40)
[2019-03-04] MEDS: Aspirin 81 MG TAB.CHEW PO (07:40)
[2019-03-04] MEDS: Multivitamins,Ther W-Minerals Tablet 1 TABLET PO (07:40)
[2019-03-04] MEDS: Iron Polysaccharide Complex 150 MG CAPSULE PO (07:40)
--- NOTE | 2019-03-04 08:33 | NURSING ---
PT STATED TO THIS NURSE THAT SHE WAS UPSET DUE TO SHE HAD TO WAIT ON A NEW FINGER PULSE OX OVER AN HOUR WHEN SHE WANTED TO GO TO BED THAT HAS TO BE CHANGED OUT EACH DAY. THIS NURSE CALLED RESPIRATORY WHICH BROUGHT UP ONE YOU DONT HAVE TO REPLACE EACH NIGHT. REPORTED TO SAMIRA WILKINSON
[2019-03-04 08:35] LABS: Hematocrit 27.4 % (37-47); Hemoglobin 8.4 g/dL (12.0-15.0)
[2019-03-04 10:35] VITALS: PULSE 78; RESP 18; O2SAT 97
[2019-03-04 10:50] LABS: Bedside Glucose 334 mg/dL (70-110)
[2019-03-04] MEDS: Insulin Lispro 100 UNIT/ML INSULN.PEN 22 UNIT SC ×2 (11:35→17:26)
[2019-03-04 14:33] VITALS: BP 159/66; PULSE 85
[2019-03-04 15:30] VITALS: BP 159/64; PULSE 77; RESP 20; TEMP 37.2; O2SAT 95
[2019-03-04 17:06] LABS: Bedside Glucose 194 mg/dL (70-110)
[2019-03-04] MEDS: Senna/Docusate Sodium 1 Tablet 2 TABLET PO (17:25)
[2019-03-04 19:16] VITALS: PULSE 79; RESP 18
[2019-03-04] MEDS: Atorvastatin Calcium 10 MG Tablet PO (20:43)
[2019-03-04] MEDS: MELATONIN 3 MG TABLET PO (20:44)
[2019-03-04] MEDS: Latanoprost 0.005% 1 Bottle 1 DRP LEFT EYE (20:47)
[2019-03-04 21:00] LABS: Bedside Glucose 273 mg/dL (70-110)
[2019-03-05] MEDS: Labetalol 200 MG Tablet PO ×3 (05:11→20:10)
[2019-03-05] MEDS: Pantoprazole Sodium 40 MG Tablet PO (05:11)
[2019-03-05] MEDS: Losartan Potassium 100 MG Tablet PO (05:11)
[2019-03-05] MEDS: amLODIPine 10 MG Tablet PO (05:11)
[2019-03-05] MEDS: guaiFENesin 600 MG Tablet 1200 MG PO ×2 (05:11→17:35)
[2019-03-05] MEDS: Fluticasone 0.05% 1 SPRAY NASAL.SRY 2 SPRAY NASAL (05:12)
[2019-03-05] MEDS: Furosemide 40 MG Tablet PO (05:12)
[2019-03-05] MEDS: BRIMONIDINE 0.2% 5ML BOTTLE 1 DRP LEFT EYE ×2 (05:13→17:35)
[2019-03-05] MEDS: Dorzolamide HCL/Timolol 10 ml Bottle 1 DRP LEFT EYE ×2 (05:13→17:35)
[2019-03-05 06:30] LABS: Bedside Glucose 211 mg/dL (70-110)
[2019-03-05 06:43] VITALS: PULSE 82; RESP 16; O2SAT 97
[2019-03-05] MEDS: Sodium Cl For Inhalation 3 ML VIAL.NEB. INHALATION ×2 (06:43→18:32)
[2019-03-05] MEDS: Sodium Chloride 0.65% 1 SPRAY SPRAY.BTL 2 SPRAY NASAL ×2 (07:54→20:04)
[2019-03-05] MEDS: Multivitamins,Ther W-Minerals Tablet 1 TABLET PO (07:58)
[2019-03-05] MEDS: Aspirin 81 MG TAB.CHEW PO (07:58)
[2019-03-05] MEDS: Folic Acid 1 MG Tablet PO (07:58)
[2019-03-05] MEDS: Insulin Lispro 100 UNIT/ML INSULN.PEN 14 UNIT SC (07:58)
[2019-03-05] MEDS: Iron Polysaccharide Complex 150 MG CAPSULE PO (07:58)
--- NOTE | 2019-03-05 10:14 | NURSING ---
THIS NURSE CALLED TO ROOM FOR PT IN BATHROOM. LARGE AMOUNT OF BLOOD IN TOILET. PT STATED SHE HAS HEMORRHOIDS. SAMIRA WILKINSON AWARE
[2019-03-05 10:46] LABS: Bedside Glucose 332 mg/dL (70-110)
[2019-03-05] MEDS: Insulin Lispro 100 UNIT/ML INSULN.PEN 22 UNIT SC ×2 (11:40→17:33)
[2019-03-05 14:00] VITALS: BP 144/63; PULSE 91
--- NOTE | 2019-03-05 15:07 | NURSING ---
PT ASKING FOR SOME THING KAZ TO HELP OPEN UP HER NASAL PASSAGES, PT STATED SHE IS SO STUFFY AND DRY. REPORTED TO SAMIRA WILKINSON
[2019-03-05 15:20] VITALS: BP 170/56; PULSE 82; RESP 18; TEMP 36.6; O2SAT 97
[2019-03-05 16:50] LABS: Bedside Glucose 217 mg/dL (70-110)
[2019-03-05 18:35] VITALS: PULSE 80; RESP 16
[2019-03-05] MEDS: MELATONIN 3 MG TABLET PO (20:10)
[2019-03-05] MEDS: Latanoprost 0.005% 1 Bottle 1 DRP LEFT EYE (20:10)
[2019-03-05] MEDS: Atorvastatin Calcium 10 MG Tablet PO (20:10)
[2019-03-05 20:18] VITALS: O2SAT 94
[2019-03-05 21:51] LABS: Bedside Glucose 189 mg/dL (70-110)
[2019-03-06] MEDS: Dorzolamide HCL/Timolol 10 ml Bottle 1 DRP LEFT EYE ×2 (06:01→17:28)
[2019-03-06] MEDS: Labetalol 200 MG Tablet PO ×3 (06:01→21:15)
[2019-03-06] MEDS: guaiFENesin 600 MG Tablet 1200 MG PO ×2 (06:01→17:26)
[2019-03-06] MEDS: Pantoprazole Sodium 40 MG Tablet PO (06:01)
[2019-03-06] MEDS: Furosemide 40 MG Tablet PO (06:01)
[2019-03-06] MEDS: Fluticasone 0.05% 1 SPRAY NASAL.SRY 2 SPRAY NASAL (06:01)
[2019-03-06] MEDS: Losartan Potassium 100 MG Tablet PO (06:01)
[2019-03-06] MEDS: amLODIPine 10 MG Tablet PO (06:01)
[2019-03-06] MEDS: BRIMONIDINE 0.2% 5ML BOTTLE 1 DRP LEFT EYE ×2 (06:02→17:26)
[2019-03-06 06:41] LABS: Bedside Glucose 200 mg/dL (70-110)
[2019-03-06 07:17] VITALS: PULSE 81; RESP 19
[2019-03-06] MEDS: Sodium Cl For Inhalation 3 ML VIAL.NEB. INHALATION ×2 (07:19→19:00)
[2019-03-06] MEDS: Iron Polysaccharide Complex 150 MG CAPSULE PO (08:12)
[2019-03-06] MEDS: Aspirin 81 MG TAB.CHEW PO (08:12)
[2019-03-06] MEDS: Multivitamins,Ther W-Minerals Tablet 1 TABLET PO (08:12)
[2019-03-06] MEDS: Folic Acid 1 MG Tablet PO (08:12)
[2019-03-06] MEDS: Insulin Lispro 100 UNIT/ML INSULN.PEN 14 UNIT SC (08:13)
[2019-03-06] MEDS: Sodium Chloride 0.65% 1 SPRAY SPRAY.BTL 2 SPRAY NASAL ×3 (08:49→21:21)
[2019-03-06 08:59] VITALS: O2SAT 92
--- NOTE | 2019-03-06 09:59 | NURSING ---
dr smiley notified of pt having bleeding hemorrhoids & c/o dry stuffy nares w/scant dried blood. dr smiley ordered anusol and bacitracin to nares.
[2019-03-06 10:00] VITALS: O2SAT 95
[2019-03-06 11:01] LABS: Bedside Glucose 295 mg/dL (70-110)
[2019-03-06] MEDS: Insulin Lispro 100 UNIT/ML INSULN.PEN 22 UNIT SC ×2 (11:52→17:24)
[2019-03-06] MEDS: BACITRACIN 15 GM Tube 1 APPLIC TOPICAL (13:37)
[2019-03-06 16:00] VITALS: BP 155/61; PULSE 76; RESP 18; TEMP 36.9; O2SAT 96
[2019-03-06 17:11] LABS: Bedside Glucose 253 mg/dL (70-110)
[2019-03-06] MEDS: Senna/Docusate Sodium 1 Tablet 2 TABLET PO (17:26)
[2019-03-06 19:00] VITALS: PULSE 80; RESP 18
[2019-03-06 20:51] LABS: Bedside Glucose 314 mg/dL (70-110)
[2019-03-06] MEDS: Latanoprost 0.005% 1 Bottle 1 DRP LEFT EYE (21:12)
[2019-03-06] MEDS: Atorvastatin Calcium 10 MG Tablet PO (21:13)
[2019-03-06] MEDS: MELATONIN 3 MG TABLET PO (21:13)
[2019-03-07 06:36] LABS: Bedside Glucose 212 mg/dL (70-110)
[2019-03-07] MEDS: BRIMONIDINE 0.2% 5ML BOTTLE 1 DRP LEFT EYE ×2 (06:39→17:20)
[2019-03-07] MEDS: guaiFENesin 600 MG Tablet 1200 MG PO ×2 (06:40→17:19)
[2019-03-07] MEDS: Losartan Potassium 100 MG Tablet PO (06:40)
[2019-03-07] MEDS: Pantoprazole Sodium 40 MG Tablet PO (06:40)
[2019-03-07] MEDS: Furosemide 40 MG Tablet PO (06:40)
[2019-03-07] MEDS: amLODIPine 10 MG Tablet PO (06:40)
[2019-03-07] MEDS: Senna/Docusate Sodium 1 Tablet 2 TABLET PO (06:40)
[2019-03-07] MEDS: Fluticasone 0.05% 1 SPRAY NASAL.SRY 2 SPRAY NASAL (06:47)
[2019-03-07] MEDS: BACITRACIN 15 GM Tube 1 APPLIC TOPICAL ×2 (06:48→17:20)
[2019-03-07] MEDS: Dorzolamide HCL/Timolol 10 ml Bottle 1 DRP LEFT EYE ×2 (06:55→17:22)
[2019-03-07] MEDS: Labetalol 200 MG Tablet PO ×3 (06:56→21:35)
[2019-03-07] MEDS: Sodium Cl For Inhalation 3 ML VIAL.NEB. INHALATION ×2 (07:37→15:57)
[2019-03-07 07:38] VITALS: PULSE 82; RESP 19
[2019-03-07] MEDS: Iron Polysaccharide Complex 150 MG CAPSULE PO (08:07)
[2019-03-07] MEDS: Multivitamins,Ther W-Minerals Tablet 1 TABLET PO (08:07)
[2019-03-07] MEDS: Folic Acid 1 MG Tablet PO (08:07)
[2019-03-07] MEDS: Aspirin 81 MG TAB.CHEW PO (08:07)
[2019-03-07] MEDS: Insulin Lispro 100 UNIT/ML INSULN.PEN 14 UNIT SC (08:10)
[2019-03-07 11:11] LABS: Bedside Glucose 256 mg/dL (70-110)
[2019-03-07] MEDS: Sodium Chloride 0.65% 1 SPRAY SPRAY.BTL 2 SPRAY NASAL (11:12)
[2019-03-07] MEDS: Insulin Lispro 100 UNIT/ML INSULN.PEN 22 UNIT SC ×2 (11:14→17:24)
[2019-03-07 13:44] VITALS: BP 136/52; PULSE 78; O2SAT 93
[2019-03-07 15:10] VITALS: BP 150/63; PULSE 90; RESP 20; TEMP 37.1; O2SAT 94
[2019-03-07 15:58] VITALS: PULSE 78; RESP 21
[2019-03-07 17:01] LABS: Bedside Glucose 239 mg/dL (70-110)
[2019-03-07 21:35] LABS: Bedside Glucose 296 mg/dL (70-110)
[2019-03-07] MEDS: MELATONIN 3 MG TABLET PO (21:37)
[2019-03-07] MEDS: Atorvastatin Calcium 10 MG Tablet PO (21:38)
[2019-03-07] MEDS: Latanoprost 0.005% 1 Bottle 1 DRP LEFT EYE (21:39)
[2019-03-07 21:50] VITALS: PULSE 80; RESP 18; O2SAT 97
[2019-03-08] MEDS: Dorzolamide HCL/Timolol 10 ml Bottle 1 DRP LEFT EYE ×2 (05:29→17:38)
[2019-03-08] MEDS: BACITRACIN 15 GM Tube 1 APPLIC TOPICAL ×2 (05:31→17:37)
[2019-03-08] MEDS: Labetalol 200 MG Tablet PO ×3 (05:33→21:27)
[2019-03-08] MEDS: Losartan Potassium 100 MG Tablet PO (05:33)
[2019-03-08] MEDS: guaiFENesin 600 MG Tablet 1200 MG PO ×2 (05:33→17:36)
[2019-03-08] MEDS: Senna/Docusate Sodium 1 Tablet 2 TABLET PO ×2 (05:34→17:36)
[2019-03-08] MEDS: Furosemide 40 MG Tablet PO (05:34)
[2019-03-08] MEDS: Pantoprazole Sodium 40 MG Tablet PO (05:34)
[2019-03-08] MEDS: Fluticasone 0.05% 1 SPRAY NASAL.SRY 2 SPRAY NASAL (05:36)
[2019-03-08] MEDS: BRIMONIDINE 0.2% 5ML BOTTLE 1 DRP LEFT EYE ×2 (05:38→17:37)
[2019-03-08] MEDS: amLODIPine 10 MG Tablet PO (05:41)
[2019-03-08 06:31] LABS: Bedside Glucose 223 mg/dL (70-110)
[2019-03-08 07:17] VITALS: PULSE 69; RESP 18; O2SAT 98
[2019-03-08] MEDS: Sodium Cl For Inhalation 3 ML VIAL.NEB. INHALATION ×2 (07:17→19:58)
[2019-03-08] MEDS: Multivitamins,Ther W-Minerals Tablet 1 TABLET PO (08:06)
[2019-03-08] MEDS: Aspirin 81 MG TAB.CHEW PO (08:06)
[2019-03-08] MEDS: Iron Polysaccharide Complex 150 MG CAPSULE PO (08:06)
[2019-03-08] MEDS: Folic Acid 1 MG Tablet PO (08:06)
[2019-03-08] MEDS: Sodium Chloride 0.65% 1 SPRAY SPRAY.BTL 2 SPRAY NASAL ×2 (08:06→21:26)
[2019-03-08] MEDS: Insulin Lispro 100 UNIT/ML INSULN.PEN 14 UNIT SC (08:07)
[2019-03-08] MEDS: Insulin Lispro 100 UNIT/ML INSULN.PEN 22 UNIT SC ×2 (11:25→17:46)
[2019-03-08 11:26] LABS: Bedside Glucose 281 mg/dL (70-110)
[2019-03-08 12:30] VITALS: O2SAT 94
--- NOTE | 2019-03-08 13:27 | NURSING ---
PER Colby SOLITARIO, PT FAMILY CAN TRANSFER PT TO AND FROM BATHROOM.
[2019-03-08 13:50] VITALS: BP 154/66; PULSE 94
[2019-03-08 16:00] VITALS: BP 134/56; PULSE 73; RESP 20; TEMP 36.9; O2SAT 95
--- NOTE | 2019-03-08 16:25 | CASEMGMT ---
Social Work IDT met with patient, and two daughters for care plan meeting. Discussed patient's progress in therapy. Pt is supervision for all ADLs. Pt is walking 275 ft with FWW SBA, completed 15 steps on this day with SBA. Nursing is working on weening pt off of new O2 - currently 2LPM. The goal is for patient to return home able to go to 2nd floor for bedroom and bathroom, without O2. Discussed pts medical conditions - answered questions. Explained HHC, outpatient therapy, DME, and Medicare coverage. Nursing and physician to follow up with family and pt to discuss CHF education and diagnosis and other medical questions. Pt has Cardiology appt 03/13. At discharge, if pt returns home and not daughter's home in [facility] - will refer to [facility]N for new CHF and possibly O2. Therapy will continue to work on endurance and strength. Will continue to follow. OSCAR OneilW
[2019-03-08 17:35] LABS: Bedside Glucose 180 mg/dL (70-110)
[2019-03-08 19:58] VITALS: PULSE 74; RESP 18
[2019-03-08 21:16] LABS: Bedside Glucose 207 mg/dL (70-110)
[2019-03-08] MEDS: Latanoprost 0.005% 1 Bottle 1 DRP LEFT EYE (21:27)
[2019-03-08] MEDS: MELATONIN 3 MG TABLET PO (21:27)
[2019-03-08] MEDS: Atorvastatin Calcium 10 MG Tablet PO (21:27)
[2019-03-09] MEDS: Fluticasone 0.05% 1 SPRAY NASAL.SRY 2 SPRAY NASAL (05:14)
[2019-03-09] MEDS: BRIMONIDINE 0.2% 5ML BOTTLE 1 DRP LEFT EYE ×2 (05:15→17:49)
[2019-03-09] MEDS: BACITRACIN 15 GM Tube 1 APPLIC TOPICAL ×2 (05:15→17:51)
[2019-03-09] MEDS: guaiFENesin 600 MG Tablet 1200 MG PO ×2 (05:16→17:50)
[2019-03-09] MEDS: Dorzolamide HCL/Timolol 10 ml Bottle 1 DRP LEFT EYE ×2 (05:17→17:49)
[2019-03-09] MEDS: Pantoprazole Sodium 40 MG Tablet PO (05:17)
[2019-03-09] MEDS: Furosemide 40 MG Tablet PO (05:17)
[2019-03-09] MEDS: Senna/Docusate Sodium 1 Tablet 2 TABLET PO (05:17)
[2019-03-09] MEDS: Labetalol 200 MG Tablet PO ×3 (05:17→22:06)
[2019-03-09] MEDS: Losartan Potassium 100 MG Tablet PO (05:17)
[2019-03-09] MEDS: amLODIPine 10 MG Tablet PO (05:22)
[2019-03-09 05:47] LABS: Absolute Neutrophil Count 4.3 X10^3/uL (2.0-7.7); Basophil# 0.06 X10^3/uL; Basophil% 0.9 % (0-1); Eosinophil# 0.18 X10^3/uL; Eosinophils% 2.6 % (0-5); Hematocrit 29.1 % (37-47); Hemoglobin 9.1 g/dL (12.0-15.0); Mean Corp Hgb Conc 31.3 g/dL (32-36); Mean Corpuscular Hgb 30.1 pg (27.0-32.0); Mean Corpuscular Volume 96.4 fL (81-99); Mean Platelet Vol. 9.6 fl (6.2-12.0); Monocyte# 0.77 X10^3/uL; NRBC Flagged by Analyzer 0 % (0-5); Neutrophil # 4.32 X10^3/uL (2.7-7.7); Neutrophil % 61.9 % (47-70); Platelet Count 302 K/mm3 (150-450); RBC Distribution Width CV 15.8 % (11.6-14.6); RBC Distribution Width SD 56.3 fl (35.1-43.9); Red Blood Count 3.02 M/mm3 (4.2-5.4)
[2019-03-09 06:16] LABS: Anion Gap 5 (5-15); BUN 25 mg/dL (7-18); Calcium,Total 9.3 mg/dL (8.5-10.1); Chloride 101 mmol/L (98-107); EST Glomerular Filtration Rate 59 mL/min (>60); Est Glom Filt Rate - Afr Amer 71 mL/min (>60); Estimated Creatinine Clearance 42.32 ml/min; Glucose 166 mg/dL (74-106); Potassium 4.7 mmol/L (3.5-5.1); Sodium Level 139 mmol/L (136-145)
[2019-03-09 06:45] LABS: Bedside Glucose 185 mg/dL (70-110)
[2019-03-09] MEDS: Aspirin 81 MG TAB.CHEW PO (07:46)
[2019-03-09] MEDS: Iron Polysaccharide Complex 150 MG CAPSULE PO (07:46)
[2019-03-09] MEDS: Folic Acid 1 MG Tablet PO (07:47)
[2019-03-09] MEDS: Insulin Lispro 100 UNIT/ML INSULN.PEN 14 UNIT SC (07:47)
[2019-03-09] MEDS: Multivitamins,Ther W-Minerals Tablet 1 TABLET PO (07:47)
[2019-03-09 07:54] VITALS: PULSE 72; RESP 16; O2SAT 97
[2019-03-09] MEDS: Sodium Cl For Inhalation 3 ML VIAL.NEB. INHALATION ×2 (07:54→20:05)
[2019-03-09] MEDS: Sodium Chloride 0.65% 1 SPRAY SPRAY.BTL 2 SPRAY NASAL ×3 (08:51→22:07)
[2019-03-09 08:52] VITALS: PULSE 71; RESP 16; O2SAT 93
[2019-03-09 11:25] LABS: Bedside Glucose 302 mg/dL (70-110)
[2019-03-09] MEDS: Insulin Lispro 100 UNIT/ML INSULN.PEN 22 UNIT SC ×2 (12:09→17:47)
[2019-03-09] MEDS: Tuberculin,Purif.prot.deriv. 50 TU/ML Vial 5 ML ID (13:24)
--- NOTE | 2019-03-09 14:02 | CHAPLAIN ---
Type of Pastoral Visit _x__ Initial Visit ___ Follow-up Visit ___ On-call Visit ___ General Patient Visit ___ Spiritual Assessment ___ Family Conference ___ Bereavement ___ Rapid Response ___ Code Blue ___ Other (describe below) Pastoral Care Referral From _x__ Patient ___ Family ___ Nurse ___ Physician ___ Rod Buster Helper ___ Approver _x__ Other (describe below) Sacrament/Intervention _x__ Active listening ___ Anointing ___ Sabianist ___ Bereavement ___ Communion _x__ Sadnra exploration ___ _x__ Life review _x__ Prayer ___ Reconciliation ___ Sacrament of Sick ___ Supportive presence ___ Wedding ___ Other (describe below) Pastoral Comments
[2019-03-09 16:00] VITALS: BP 116/52; PULSE 95; RESP 26; TEMP 37.2; O2SAT 95
[2019-03-09 17:16] LABS: Bedside Glucose 284 mg/dL (70-110)
[2019-03-09 20:00] VITALS: PULSE 75; RESP 18
--- NOTE | 2019-03-09 21:05 | RAD_ITS ---
STUDY: X-RAY CHEST REASON FOR EXAM: Female, 63 years old. Shortness of breath TECHNIQUE: PA and lateral views of the chest. COMPARISON: 02/07/2019. FINDINGS: Cardiac silhouette is prominent. Pulmonary vascularity is mildly prominent. Aorta unremarkable. No focal airspace consolidation. Minimal bibasilar linear opacities. No pleural effusions. Upper abdomen unremarkable. Osseous structures intact. No pneumothorax. RAD/Chest PA and Lateral IMPRESSION: Mild pulmonary vascular congestion. Minimal linear bibasilar densities may represent atelectasis. No focal consolidation or pneumothorax. Electronically Signed: Terry Leal, at 22:11 EDT Tel , Service support ,
[2019-03-09 21:41] LABS: Bedside Glucose 240 mg/dL (70-110)
[2019-03-09] MEDS: Doxepin Hydrochloride 10 MG Capsule PO (22:06)
[2019-03-09] MEDS: Latanoprost 0.005% 1 Bottle 1 DRP LEFT EYE (22:06)
[2019-03-09] MEDS: Atorvastatin Calcium 10 MG Tablet PO (22:06)
[2019-03-10] MEDS: Fluticasone 0.05% 1 SPRAY NASAL.SRY 2 SPRAY NASAL (06:33)
[2019-03-10] MEDS: Furosemide 40 MG Tablet PO ×2 (06:34→13:04)
[2019-03-10] MEDS: amLODIPine 10 MG Tablet PO (06:34)
[2019-03-10] MEDS: Losartan Potassium 100 MG Tablet PO (06:34)
[2019-03-10] MEDS: guaiFENesin 600 MG Tablet 1200 MG PO ×2 (06:34→17:46)
[2019-03-10] MEDS: BACITRACIN 15 GM Tube 1 APPLIC TOPICAL ×2 (06:34→17:43)
[2019-03-10] MEDS: Labetalol 200 MG Tablet PO ×3 (06:34→21:52)
[2019-03-10] MEDS: BRIMONIDINE 0.2% 5ML BOTTLE 1 DRP LEFT EYE ×2 (06:35→17:44)
[2019-03-10] MEDS: Dorzolamide HCL/Timolol 10 ml Bottle 1 DRP LEFT EYE ×2 (06:35→17:45)
[2019-03-10] MEDS: Pantoprazole Sodium 40 MG Tablet PO (06:35)
[2019-03-10 06:39] VITALS: BP 144/72
[2019-03-10 07:01] LABS: Bedside Glucose 214 mg/dL (70-110)
[2019-03-10] MEDS: Sodium Cl For Inhalation 3 ML VIAL.NEB. INHALATION ×2 (07:35→20:10)
[2019-03-10 07:36] VITALS: PULSE 80; RESP 20; O2SAT 95
[2019-03-10] MEDS: Aspirin 81 MG TAB.CHEW PO (08:13)
[2019-03-10] MEDS: Iron Polysaccharide Complex 150 MG CAPSULE PO (08:13)
[2019-03-10] MEDS: Multivitamins,Ther W-Minerals Tablet 1 TABLET PO (08:13)
[2019-03-10] MEDS: Folic Acid 1 MG Tablet PO (08:13)
[2019-03-10] MEDS: Insulin Lispro 100 UNIT/ML INSULN.PEN 14 UNIT SC (08:13)
[2019-03-10 10:41] LABS: Bedside Glucose 347 mg/dL (70-110)
[2019-03-10] MEDS: Insulin Lispro 100 UNIT/ML INSULN.PEN 22 UNIT SC (11:32)
[2019-03-10 13:05] VITALS: PULSE 86
[2019-03-10] MEDS: Sodium Chloride 0.65% 1 SPRAY SPRAY.BTL 2 SPRAY NASAL ×2 (13:06→21:59)
--- NOTE | 2019-03-10 13:55 | NURSING ---
NOTIFIED DR. BONILLA OF INCREASED BLOOD SUGARS. INSULIN ADJUSTED.
[2019-03-10 16:00] VITALS: BP 133/57; PULSE 79; RESP 18; TEMP 37.1; O2SAT 95
[2019-03-10 17:05] LABS: Bedside Glucose 263 mg/dL (70-110)
[2019-03-10] MEDS: Insulin Lispro 100 UNIT/ML INSULN.PEN 23 UNIT SC (17:41)
[2019-03-10] MEDS: Senna/Docusate Sodium 1 Tablet 2 TABLET PO (17:46)
[2019-03-10 20:10] VITALS: PULSE 78; RESP 18
[2019-03-10 21:31] LABS: Bedside Glucose 235 mg/dL (70-110)
[2019-03-10 21:52] VITALS: BP 152/59; PULSE 77
[2019-03-10] MEDS: MELATONIN 10 MG TABLET PO (21:52)
[2019-03-10] MEDS: Atorvastatin Calcium 10 MG Tablet PO (21:52)
[2019-03-10] MEDS: Latanoprost 0.005% 1 Bottle 1 DRP LEFT EYE (21:52)
[2019-03-11] MEDS: BACITRACIN 15 GM Tube 1 APPLIC TOPICAL ×2 (05:08→16:33)
[2019-03-11] MEDS: BRIMONIDINE 0.2% 5ML BOTTLE 1 DRP LEFT EYE ×2 (05:09→16:35)
[2019-03-11] MEDS: Dorzolamide HCL/Timolol 10 ml Bottle 1 DRP LEFT EYE ×2 (05:09→16:35)
[2019-03-11] MEDS: Fluticasone 0.05% 1 SPRAY NASAL.SRY 2 SPRAY NASAL (05:10)
[2019-03-11] MEDS: Losartan Potassium 100 MG Tablet PO (05:10)
[2019-03-11] MEDS: Furosemide 40 MG Tablet PO ×2 (05:10→13:55)
[2019-03-11] MEDS: guaiFENesin 600 MG Tablet 1200 MG PO ×2 (05:10→16:34)
[2019-03-11] MEDS: Senna/Docusate Sodium 1 Tablet 2 TABLET PO ×2 (05:11→16:34)
[2019-03-11] MEDS: amLODIPine 10 MG Tablet PO (05:11)
[2019-03-11] MEDS: Pantoprazole Sodium 40 MG Tablet PO (05:11)
[2019-03-11 05:12] VITALS: BP 170/55; PULSE 86
[2019-03-11] MEDS: Labetalol 200 MG Tablet PO ×3 (05:12→20:42)
[2019-03-11 06:35] LABS: Bedside Glucose 140 mg/dL (70-110)
[2019-03-11 07:50] VITALS: PULSE 80; RESP 20; O2SAT 93
[2019-03-11] MEDS: Sodium Cl For Inhalation 3 ML VIAL.NEB. INHALATION ×2 (07:50→19:23)
[2019-03-11] MEDS: Folic Acid 1 MG Tablet PO (08:06)
[2019-03-11] MEDS: Iron Polysaccharide Complex 150 MG CAPSULE PO (08:07)
[2019-03-11] MEDS: Aspirin 81 MG TAB.CHEW PO (08:07)
[2019-03-11] MEDS: Multivitamins,Ther W-Minerals Tablet 1 TABLET PO (08:07)
[2019-03-11] MEDS: Insulin Lispro 100 UNIT/ML INSULN.PEN 23 UNIT SC ×3 (08:08→18:16)
--- NOTE | 2019-03-11 08:49 | NURSING ---
Pts daughter called nurse in room, a pill was found on floor EP/117 this nurse looked up pill and found it to be lasix 40mg, pt recieves this @ 6am and 14. Unsure of when this pill fell on floor. pill was discarded
[2019-03-11] MEDS: Sodium Chloride 0.65% 1 SPRAY SPRAY.BTL 2 SPRAY NASAL ×2 (09:50→20:46)
[2019-03-11 11:16] LABS: Bedside Glucose 198 mg/dL (70-110)
[2019-03-11 16:00] VITALS: BP 130/55; PULSE 77; RESP 20; TEMP 36.6; O2SAT 96
[2019-03-11 16:52] LABS: Bedside Glucose 140 mg/dL (70-110)
[2019-03-11 19:24] VITALS: PULSE 80; RESP 18; O2SAT 99
[2019-03-11] MEDS: Atorvastatin Calcium 10 MG Tablet PO (20:43)
[2019-03-11] MEDS: Latanoprost 0.005% 1 Bottle 1 DRP LEFT EYE (20:44)
[2019-03-11] MEDS: MELATONIN 10 MG TABLET PO (20:44)
[2019-03-11 21:15] LABS: Bedside Glucose 141 mg/dL (70-110)
[2019-03-12] MEDS: BRIMONIDINE 0.2% 5ML BOTTLE 1 DRP LEFT EYE ×2 (05:49→17:13)
[2019-03-12] MEDS: Senna/Docusate Sodium 1 Tablet 2 TABLET PO (05:50)
[2019-03-12] MEDS: Furosemide 40 MG Tablet PO ×2 (05:50→14:30)
[2019-03-12] MEDS: Losartan Potassium 100 MG Tablet PO (05:50)
[2019-03-12] MEDS: Labetalol 200 MG Tablet PO ×3 (05:50→21:07)
[2019-03-12] MEDS: Pantoprazole Sodium 40 MG Tablet PO (05:50)
[2019-03-12] MEDS: guaiFENesin 600 MG Tablet 1200 MG PO ×2 (05:50→17:12)
[2019-03-12] MEDS: amLODIPine 10 MG Tablet PO (05:50)
[2019-03-12] MEDS: Fluticasone 0.05% 1 SPRAY NASAL.SRY 2 SPRAY NASAL (05:51)
[2019-03-12] MEDS: BACITRACIN 15 GM Tube 1 APPLIC TOPICAL ×2 (05:51→17:14)
[2019-03-12] MEDS: Dorzolamide HCL/Timolol 10 ml Bottle 1 DRP LEFT EYE ×2 (05:56→17:14)
[2019-03-12 06:26] LABS: Anion Gap 7 (5-15); BUN 32 mg/dL (7-18); BUN/Creat Ratio 29.6 RATIO (10-20); Chloride 102 mmol/L (98-107); Creatinine, Serum 1.08 mg/dL (0.55-1.02); EST Glomerular Filtration Rate 54 mL/min (>60); Est Glom Filt Rate - Afr Amer 65 mL/min (>60); Estimated Creatinine Clearance 39.19 ml/min; Glucose 87 mg/dL (74-106); Potassium 4.6 mmol/L (3.5-5.1); Sodium Level 142 mmol/L (136-145)
[2019-03-12 06:31] LABS: Bedside Glucose 97 mg/dL (70-110)
[2019-03-12 06:54] VITALS: PULSE 76; RESP 18; O2SAT 98
[2019-03-12] MEDS: Sodium Cl For Inhalation 3 ML VIAL.NEB. INHALATION ×2 (06:54→19:50)
[2019-03-12] MEDS: Insulin Lispro 100 UNIT/ML INSULN.PEN 19 UNIT SC (08:11)
[2019-03-12] MEDS: Multivitamins,Ther W-Minerals Tablet 1 TABLET PO (08:12)
[2019-03-12] MEDS: Folic Acid 1 MG Tablet PO (08:12)
[2019-03-12] MEDS: Iron Polysaccharide Complex 150 MG CAPSULE PO (08:12)
[2019-03-12] MEDS: Aspirin 81 MG TAB.CHEW PO (08:12)
[2019-03-12] MEDS: Sodium Chloride 0.65% 1 SPRAY SPRAY.BTL 2 SPRAY NASAL (11:23)
[2019-03-12] MEDS: Insulin Lispro 100 UNIT/ML INSULN.PEN 13 UNIT SC ×2 (11:23→17:17)
[2019-03-12 11:30] LABS: Bedside Glucose 140 mg/dL (70-110)
[2019-03-12 15:19] VITALS: BP 153/55; PULSE 87; RESP 18; TEMP 36.9; O2SAT 91
[2019-03-12 16:41] LABS: Bedside Glucose 191 mg/dL (70-110)
[2019-03-12 17:45] VITALS: O2SAT 94
[2019-03-12 19:50] VITALS: PULSE 78; RESP 18; O2SAT 94
[2019-03-12 21:06] LABS: Bedside Glucose 290 mg/dL (70-110)
[2019-03-12] MEDS: Latanoprost 0.005% 1 Bottle 1 DRP LEFT EYE (21:07)
[2019-03-12] MEDS: Atorvastatin Calcium 10 MG Tablet PO (21:07)
[2019-03-12] MEDS: MELATONIN 10 MG TABLET PO (21:07)
[2019-03-13] VITALS (7 sets, daily range): BP systolic 133–151; BP diastolic 58–68; PULSE 74–93; RESP 16–19; TEMP 36.4–36.9; O2SAT 85–95
[2019-03-13] MEDS: BACITRACIN 15 GM Tube 1 APPLIC TOPICAL ×2 (05:54→17:18)
[2019-03-13] MEDS: Dorzolamide HCL/Timolol 10 ml Bottle 1 DRP LEFT EYE ×2 (05:55→17:19)
[2019-03-13] MEDS: BRIMONIDINE 0.2% 5ML BOTTLE 1 DRP LEFT EYE ×2 (05:55→17:19)
[2019-03-13] MEDS: Losartan Potassium 100 MG Tablet PO (05:55)
[2019-03-13] MEDS: Labetalol 200 MG Tablet PO ×3 (05:55→20:27)
[2019-03-13] MEDS: Pantoprazole Sodium 40 MG Tablet PO (05:56)
[2019-03-13] MEDS: amLODIPine 10 MG Tablet PO (05:56)
[2019-03-13] MEDS: Furosemide 40 MG Tablet PO ×2 (05:56→17:14)
[2019-03-13] MEDS: guaiFENesin 600 MG Tablet 1200 MG PO ×2 (05:56→17:14)
[2019-03-13] MEDS: Senna/Docusate Sodium 1 Tablet 2 TABLET PO ×2 (05:58→17:15)
[2019-03-13] MEDS: Fluticasone 0.05% 1 SPRAY NASAL.SRY 2 SPRAY NASAL (06:11)
[2019-03-13 07:21] LABS: Bedside Glucose 226 mg/dL (70-110)
[2019-03-13] MEDS: Sodium Cl For Inhalation 3 ML VIAL.NEB. INHALATION ×2 (07:43→19:19)
[2019-03-13] MEDS: Aspirin 81 MG TAB.CHEW PO (07:59)
[2019-03-13] MEDS: Iron Polysaccharide Complex 150 MG CAPSULE PO (07:59)
[2019-03-13] MEDS: Folic Acid 1 MG Tablet PO (07:59)
[2019-03-13] MEDS: Insulin Lispro 100 UNIT/ML INSULN.PEN 13 UNIT SC (08:00)
[2019-03-13] MEDS: Sodium Chloride 0.65% 1 SPRAY SPRAY.BTL 2 SPRAY NASAL (08:02)
[2019-03-13] MEDS: Multivitamins,Ther W-Minerals Tablet 1 TABLET PO (09:52)
[2019-03-13 11:00] LABS: Bedside Glucose 267 mg/dL (70-110)
[2019-03-13] MEDS: Insulin Lispro 100 UNIT/ML INSULN.PEN 15 UNIT SC ×2 (11:41→17:25)
--- NOTE | 2019-03-13 13:54 | NURSING ---
PT LEFT BY WHEELCHAIR AT 1305 FOR APPOINTMENT IN [place]. FAMILY TAKING.
[2019-03-13 17:26] LABS: Bedside Glucose 196 mg/dL (70-110)
--- NOTE | 2019-03-13 17:31 | NURSING ---
PT ARRIVED BACK TO FLOOR AT 1710.
[2019-03-13] MEDS: Atorvastatin Calcium 10 MG Tablet PO (20:27)
[2019-03-13] MEDS: Latanoprost 0.005% 1 Bottle 1 DRP LEFT EYE (20:27)
[2019-03-13] MEDS: MELATONIN 10 MG TABLET PO (20:27)
[2019-03-13 21:21] LABS: Bedside Glucose 317 mg/dL (70-110)
[2019-03-14] MEDS: BRIMONIDINE 0.2% 5ML BOTTLE 1 DRP LEFT EYE ×2 (05:50→17:42)
[2019-03-14] MEDS: Losartan Potassium 100 MG Tablet PO (05:52)
[2019-03-14] MEDS: guaiFENesin 600 MG Tablet 1200 MG PO ×2 (05:52→17:46)
[2019-03-14] MEDS: amLODIPine 10 MG Tablet PO (05:52)
[2019-03-14] MEDS: Furosemide 40 MG Tablet PO ×2 (05:52→05:53)
[2019-03-14] MEDS: Labetalol 200 MG Tablet PO ×3 (05:53→20:47)
[2019-03-14] MEDS: Pantoprazole Sodium 40 MG Tablet PO (05:53)
[2019-03-14] MEDS: Senna/Docusate Sodium 1 Tablet 2 TABLET PO (05:53)
[2019-03-14] MEDS: Fluticasone 0.05% 1 SPRAY NASAL.SRY 2 SPRAY NASAL (05:53)
[2019-03-14] MEDS: BACITRACIN 15 GM Tube 1 APPLIC TOPICAL ×2 (05:56→17:42)
[2019-03-14] MEDS: Dorzolamide HCL/Timolol 10 ml Bottle 1 DRP LEFT EYE ×2 (05:57→17:41)
[2019-03-14 06:45] LABS: Bedside Glucose 194 mg/dL (70-110)
[2019-03-14] MEDS: Sodium Cl For Inhalation 3 ML VIAL.NEB. INHALATION ×2 (07:30→20:45)
[2019-03-14 07:47] VITALS: PULSE 82; RESP 18
[2019-03-14] MEDS: Insulin Lispro 100 UNIT/ML INSULN.PEN 15 UNIT SC ×3 (08:13→17:40)
[2019-03-14] MEDS: Multivitamins,Ther W-Minerals Tablet 1 TABLET PO (08:15)
[2019-03-14] MEDS: Iron Polysaccharide Complex 150 MG CAPSULE PO (08:15)
[2019-03-14] MEDS: Aspirin 81 MG TAB.CHEW PO (08:15)
[2019-03-14] MEDS: Folic Acid 1 MG Tablet PO (08:15)
--- NOTE | 2019-03-14 09:27 | MDS.RN ---
Information for the mds was obtained from review of the clinical record, interview of resident, staff, and direct observation of resident's care.
[2019-03-14] MEDS: Sodium Chloride 0.65% 1 SPRAY SPRAY.BTL 2 SPRAY NASAL ×3 (09:38→20:47)
[2019-03-14 11:06] LABS: Bedside Glucose 259 mg/dL (70-110)
[2019-03-14 12:45] VITALS: O2SAT 84; O2SAT 85; O2SAT 92
--- NOTE | 2019-03-14 13:21 | CASEMGMT ---
Social Work Spoke with patient about primary insurance being [employer] and Medicare is secondary as the patient's spouse works. Explained insurance provided authorization from 03/01 to 03/12, and requesting an update on this day. Discussed patient progressing very well and being independent with ADLs and walking. PT made pt adlib in room and pt completed 15 steps while managing oxygen tubing; therefore, insurance may set a discharge date with only 24 hours notice. Discussed discharge plans. IDT agreeable for pt to return home despite toilet on second floor and works during the day. Pt states she is planning on discharging initially to her daughter's house in [place], and her goal is still to get weaned off of oxygen. Explained that can continue to be monitored in the community and SW will make referral to get those services set up. Discussed the difference between HHC and outpatient, and therapy recommending outpatient, if any continued therapy. Pt stated she will talk with her family and let the SW know. Will continue to follow. Kenna Coello, OSCAR DOUGLASW
[2019-03-14 13:22] VITALS: BP 139/47; PULSE 78
[2019-03-14 15:54] VITALS: BP 138/54; PULSE 86; RESP 19; TEMP 36.9; O2SAT 93
[2019-03-14 16:56] LABS: Bedside Glucose 205 mg/dL (70-110)
[2019-03-14 20:45] VITALS: PULSE 81; RESP 18; O2SAT 98
[2019-03-14] MEDS: Latanoprost 0.005% 1 Bottle 1 DRP LEFT EYE (20:45)
[2019-03-14] MEDS: MELATONIN 10 MG TABLET PO (20:52)
[2019-03-14] MEDS: Atorvastatin Calcium 10 MG Tablet PO (20:52)
[2019-03-14 21:27] VITALS: PULSE 76; RESP 16; O2SAT 96
[2019-03-14 21:36] LABS: Bedside Glucose 304 mg/dL (70-110)
[2019-03-15] MEDS: BRIMONIDINE 0.2% 5ML BOTTLE 1 DRP LEFT EYE ×2 (06:10→17:26)
[2019-03-15] MEDS: Fluticasone 0.05% 1 SPRAY NASAL.SRY 2 SPRAY NASAL (06:11)
[2019-03-15] MEDS: BACITRACIN 15 GM Tube 1 APPLIC TOPICAL ×2 (06:11→17:29)
[2019-03-15] MEDS: guaiFENesin 600 MG Tablet 1200 MG PO ×2 (06:14→17:29)
[2019-03-15] MEDS: Losartan Potassium 100 MG Tablet PO (06:15)
[2019-03-15] MEDS: Senna/Docusate Sodium 1 Tablet 2 TABLET PO ×2 (06:15→17:30)
[2019-03-15] MEDS: Pantoprazole Sodium 40 MG Tablet PO (06:15)
[2019-03-15] MEDS: amLODIPine 10 MG Tablet PO (06:15)
[2019-03-15] MEDS: Furosemide 40 MG Tablet PO ×2 (06:15→13:29)
[2019-03-15] MEDS: Labetalol 200 MG Tablet PO ×3 (06:16→22:00)
[2019-03-15] MEDS: Dorzolamide HCL/Timolol 10 ml Bottle 1 DRP LEFT EYE ×2 (06:20→17:26)
[2019-03-15 06:30] VITALS: PULSE 79; RESP 20; O2SAT 97
[2019-03-15] MEDS: Sodium Cl For Inhalation 3 ML VIAL.NEB. INHALATION ×2 (06:30→19:50)
[2019-03-15 06:41] LABS: Bedside Glucose 217 mg/dL (70-110)
[2019-03-15] MEDS: Insulin Lispro 100 UNIT/ML INSULN.PEN 15 UNIT SC (07:49)
[2019-03-15] MEDS: Iron Polysaccharide Complex 150 MG CAPSULE PO (07:50)
[2019-03-15] MEDS: Aspirin 81 MG TAB.CHEW PO (07:50)
[2019-03-15] MEDS: Multivitamins,Ther W-Minerals Tablet 1 TABLET PO (07:51)
[2019-03-15] MEDS: Folic Acid 1 MG Tablet PO (07:51)
[2019-03-15] MEDS: Sodium Chloride 0.65% 1 SPRAY SPRAY.BTL 2 SPRAY NASAL ×2 (08:36→17:27)
[2019-03-15 11:00] LABS: Bedside Glucose 296 mg/dL (70-110)
[2019-03-15] MEDS: Insulin Lispro 100 UNIT/ML INSULN.PEN 18 UNIT SC ×2 (11:52→17:31)
--- NOTE | 2019-03-15 14:52 | NURSING ---
pt at rest on 1l sat was 91%. with ambulation however o2 increased to 2l and still desating to 88%. o2 up to 3l during ambulation and pt maintains 90's with exertion.
[2019-03-15 16:00] VITALS: BP 165/56; PULSE 80; RESP 18; TEMP 36.7; O2SAT 96
--- NOTE | 2019-03-15 16:50 | CASEMGMT ---
Social Work Spoke with patient's daughter multiple times on this date. Received voicemail from patient's daughter, Sabine, inquiring about outcome from xray of lungs, if there was still fluid, the follow up that would be needed after discharge, and other medical concerns. Returned dtr phone call that those questions and concerns have been referred to director and physician for further follow up. Dtr asked to schedule a meeting with SW to further discuss concerns and questions - scheduled meeting for this date at 4pm to meet in patient's room. Dtr and her called SW again with questions about insurance, discharge plans and oxygen details. Discussed discharge plans - still have not heard outcome of insurance update. Dtr inquired if pt/family can set their own DC date so plans can get finalized, i.e. coordinating the oxygen. SW explained pt has the right to choose when to discharge - dtr stated they do not want to wait on the insurance outcome and the pt will discharge to the dtr's house in [place] 03/16. Offered to coordinate oxygen delivery time, dtr stated they would call [employer] to do that on this date. Discussed at length with dtr about the change in insurance for the patient's stay - Rochelle has provided auth from time of admission, and just awaiting outcome from update 03/14 if they will continue to approve more days for pt. Explained coverage for [facility] and outpatient, and pt can decide which one she would like at discharge. Dtr inquired about medical follow up from previous conversation. MOUNA stated since the pt is discharging tomorrow and the dtr will be present from the scheduled meeting, the physician will visit pt tonight to discuss discharge and can answer/discuss any medical concerns/questions. Spoke with nursing prior to meeting to discuss oxygen need. Nursing informed SW pt uses 1LPM at rest, 2LPM upon exertion during the day and 5LPM at night d/t sleep apnea. [employer] contacted SW to confirm DC date and liter flow. [employer] stated they would need an updated order and medical documentation to increase oxygen for pt to use at night. Arrived at pt's room for scheduled meeting - only pt was present. Inquired about dtr attending, pt stated dtr needed to be home for [employer] to deliver oxygen. Proceeded with meeting. Discussed patient discharging tomorrow despite outcome of insurance and if that was okay with patient - pt surprised with the information, but agreeable. MOUNA explained the dtr decided that DC date as long as that was okay with pt - pt agreed and agreeable to DC to dtr's house. Pt stated her researched which outpatient facilities accepted pt's insurance and [facility] does and requested referral to continue therapy after discharge. Continued to answer pt's questions. Inquired about sleep apnea and if pt used CPAP prior at home. Pt explained she did, but the mask she used was not supplying enough oxygen so she got a new mask, which she was using with the CPAP during her stay, but it was uncomfortable and she could not sleep. Pt mentioned when met with the model making supervisor 03/13, ordered a sleep study for new mask, but pt did not recall if told her to keep using oxygen at night or CPAP and current mask. Pt did not have any paperwork from appt, just the list of her upcoming follow up appts. Explained physician will be in to visit pt for discharge tonight and to ask any other medical questions to him, and if dtr arrives, she can ask any questions as well. Pt thanked MOUNA for communication throughout stay and for the meeting. Pt expressed her appreciation for the staff. Relayed information to nurse about cardiology appt and sleep study appt - nurse stated since family went with pt to the appt, nursing did not receive any paperwork with that information. Contacted dtr to inquire about the paperwork from cardiology as it is pertinent to know if dr advised to wear oxygen at night at home or CPAP, along with any other new orders. Dtr began questioning the need for the information since pt is discharging tomorrow. Explained currently, the oxygen order to [facility] states pt needs 1-2 LPM, but if pt needs 5LPM at night additionally, a new script and medical documentation needs to be provided to [employer] in order for them to properly supply the amount of oxygen the pt needs. Dtr and her having difficulty understanding this and continuing to question the need for the cardiology appt paperwork and what the pt will use at night. Attempted to reexplain the information, but both still reluctant to answer the question due to the relevance of the information being requested. Explained the oxygen ordered currently only supplies the pts need for 1-2 LPM, and it will need increased if pt is using the 5 LPM at night, which requires a script and medical necessity. Dtr responded the pt will continue to do what she is doing now, i.e. using the 5LPM at night. Thanked for the information and will send the updated information to [facility]. Dtr and notably upset and expressed their frustration with the conversation. SW attempted to resolve frustrations, but dtr chose to no longer continue the conversation and disconnect abruptly from the phone conversation. Physician and director updated on the above information. Faxed to [facility] the new oxygen order and nursing to complete oxygen testing and documentation tonight. Referred to [facility] in [place] for outpatient PT/OT. Plan: DC to daughter's house in [place] 03/16 with outpatient PT/OT at [facility] and [facility] for oxygen and FWW. Kenna Coello, OSCAR DOUGLASW
[2019-03-15 17:06] LABS: Bedside Glucose 244 mg/dL (70-110)
--- NOTE | 2019-03-15 18:08 | NURSING ---
Dr Pinon in to see pt and daughter asha, daughter did not ask any questions, would not make eye contact either. pt very appreciative of Dr Pinno's care.
--- NOTE | 2019-03-15 19:35 | RAD_ITS ---
STUDY: X-RAY CHEST REASON FOR EXAM: Female, 63 years old. SOB. TECHNIQUE: PA and lateral chest. COMPARISON: None. FINDINGS: No pleural effusion. Mild atelectasis in the lung bases bilaterally. Normal size heart. Normal mediastinum and dante. Normal visualized pulmonary arteries. Normal visualized aortic arch and descending thoracic aorta. Moderate thoracic S-shaped scoliosis. Soft tissues and bony structures are otherwise unremarkable. RAD/Chest PA and Lateral IMPRESSION: 1. Mild bibasilar atelectasis. Otherwise, no acute findings. 2. Scoliosis. Electronically Signed: Zita Whitaker MD at 20:02 EST Tel , Service support ,
[2019-03-15 19:56] VITALS: PULSE 80; RESP 18; O2SAT 97
--- NOTE | 2019-03-15 20:37 | DCINST_ITS ---
- Discharge Diagnoses Current Active Problems: Current Active and Chronic Problems Debility (Acute) Coronary artery disease (Chronic) Diabetes mellitus (Chronic) Hyperlipidemia (Chronic) Obstructive sleep apnea (Chronic) Body mass index (BMI) 40.0-44.9, adult (Chronic) Chronic diastolic (congestive) heart failure (Chronic) Glaucoma (Chronic) Asthma (Chronic) Acute respiratory failure (Acute) Unresponsive (Acute) Gastrointestinal bleed (Acute) Acute kidney injury (Acute) Anemia (Acute) NSTEMI (non-ST elevated myocardial infarction) (Acute) Hypovolemic shock (Acute) PEA (Pulseless electrical activity) (Acute) Diabetic ketoacidosis (Acute) Cardiac shock syndrome (Acute) Aspiration pneumonia (Acute) E. coli UTI (Acute) You will use the following diet at home:: No restrictions, Regular Your food should be the consistency of: Regular Your liquids should be the consistency of: Regular/Thin Discharge Activity: Return to Normal Activity, May Shower, Use Walker Weight Bearing Status: Weight bearing as tolerated Call your doctor if you observe: Fever of 101 or Higher, Inability to urinate, Inability to have a bowel movement, Shortness of breath, Chest pain, Uncontrolled pain Allergies/Adverse Reactions: Allergies amoxicillin Allergy (Verified 02/07/19 15:55) Hives Sulfa (Sulfonamide Antibiotics) Allergy (Verified 02/07/19 15:55) Hives quinapril [From Accupril] Adverse Reaction (Verified 02/07/19 15:55) Other rosiglitazone [From Avandia] Adverse Reaction (Verified 02/07/19 15:55) Other Medications to take at Discharge Aspirin [Aspirin, Baby] 1 tablet PO DAILY 05/29/16 Brimonidine Tartrate 0.2% [Brimonidine 0.2% 5Ml Bottle] 1 drop LEFT EYE BID 05/29/16 Centrum Silver Tablet 1 tab PO DAILY 05/29/16 Cholecalciferol (Vitamin D3) [Vitamin D3] 2 tab PO DAILY 05/29/16 Dorzolamide HCl/Timolol Maleat [Dorzolamide-Timolol Eye Drops] 1 drop LEFT EYE Q12H PRN 05/29/16 Folic Acid 1 mg PO DAILY@0800 05/29/16 Insulin Glargine,Hum.rec.anlog [Lantus] 55 units SQ QHS 05/29/16 Latanoprost 0.005% [Xalatan Opthalmic] 1 drop LEFT EYE QHS 05/29/16 Guaifenesin [Mucinex] 1,200 mg PO Q12H 03/01/19 Insulin Lispro [Humalog KwikPen] 14 unit SQ BREAKFAST 03/01/19 Insulin Lispro [Humalog KwikPen] 22 unit SQ 1200,1700 03/01/19 Sodium Chloride 0.65% [[place] Nasal [place]] 2 spray NASAL BID PRN PRN 03/01/19 Timolol 0.5% [Timoptic] 1 drp LEFT EYE BID 03/01/19 Triamcinolone Acetonide [Nasacort Aq Nasal [place]] 2 spray NASAL DAILY 03/01/19 Acetaminophen [Tylenol] 1,000 mg PO Q6H PRN PRN tablet 03/15/19 Albuterol Inhaler [Ventolin Hfa] 2 puff INHALATION Q4H PRN PRN #1 inhaler 03/15/19 Amlodipine Besylate [Norvasc] 10 mg PO DAILY #14 tab 03/15/19 Atorvastatin Calcium [Lipitor] 10 mg PO QHS #14 tab 03/15/19 Bacitracin Ointment 1 applic TOPICAL BID tube 03/15/19 Furosemide 40 mg PO DAILY #14 tab 03/15/19 Iron Polysaccharide Complex [Ferrex 150] 150 mg PO DAILYCM #14 cap 03/15/19 Labetalol [Trandate (Beta Leland)] 200 mg PO Q8H #42 tab 03/15/19 Losartan Potassium [Cozaar] 100 mg PO DAILY #30 tab 03/15/19 Melatonin 10 mg PO QHS tablet 03/15/19 Menthol/Lanolin/Calamine/Znox [Calmoseptine Ointment] 1 applic TOPICAL BID PRN PRN tube 03/15/19 Nystatin Powder [Mycostatin Powder] 1 applic TOPICAL BID PRN PRN bottle 03/15/19 Pantoprazole Sodium [Protonix] 40 mg PO DAILY #30 tab 03/15/19 Sodium Chloride For Inhalation [Hyper-Russell] 4 ml IH BID #30 vial.neb 03/15/19 The following prescriptions were given: Losartan Potassium [Cozaar] 100 mg PO DAILY #30 tab Prescription Printed Iron Polysaccharide Complex [Ferrex 150] 150 mg PO DAILYCM #14 cap Prescription Printed Furosemide 40 mg PO DAILY #14 tab Prescription Printed Sodium Chloride For Inhalation [Hyper-Russell] 4 ml IH BID #30 vial.neb Prescription Printed Atorvastatin Calcium [Lipitor] 10 mg PO QHS #14 tab Prescription Printed Amlodipine Besylate [Norvasc] 10 mg PO DAILY #14 tab Prescription Printed Pantoprazole Sodium [Protonix] 40 mg PO DAILY #30 tab Prescription Printed Labetalol [Trandate (Beta Leland)] 200 mg PO Q8H #42 tab Prescription Printed Albuterol Inhaler [Ventolin Hfa] 2 puff INHALATION Q4H PRN PRN #1 inhaler PRN Reason: Sob &/Or Wheezing Prescription Printed Primary Care Physician: Casey Barlow MD [Primary Care Provider] - Please follow up with your Primary Care Physician in: 1 week. Test Results: Test results from this visit will be discussed in further detail at your follow- up appointment, if applicable. Please Follow Up With: DU ROBERTS When: [phone] Please Follow Up With: Buddy Payne, Please Follow Up With: sleep study When: per cardiovascular doctor (Buddy PAYNE) Proposed Discharge Date: 03/16/19
--- NOTE | 2019-03-15 20:38 | DS.PCM_ITS ---
Discharge Date and Diagnosis - Problem List Patient Problems: Active and Suspected Problems Debility (Acute) Acute respiratory failure (Acute) Unresponsive (Acute) Gastrointestinal bleed (Acute) Acute kidney injury (Acute) Anemia (Acute) NSTEMI (non-ST elevated myocardial infarction) (Acute) Hypovolemic shock (Acute) PEA (Pulseless electrical activity) (Acute) Diabetic ketoacidosis (Acute) Cardiac shock syndrome (Acute) Aspiration pneumonia (Acute) E. coli UTI (Acute) Date of Admission: 03/01/19 Date of Discharge: 03/16/19 - Primary Discharge Diagnosis Active and Suspected Problems Debility (Acute) Acute respiratory failure (Acute) Unresponsive (Acute) Gastrointestinal bleed (Acute) Acute kidney injury (Acute) Anemia (Acute) NSTEMI (non-ST elevated myocardial infarction) (Acute) Hypovolemic shock (Acute) PEA (Pulseless electrical activity) (Acute) Diabetic ketoacidosis (Acute) Cardiac shock syndrome (Acute) Aspiration pneumonia (Acute) E. coli UTI (Acute) - Secondary Discharge Diagnosis Chronic Problems Coronary artery disease (Chronic) Diabetes mellitus (Chronic) Hyperlipidemia (Chronic) Obstructive sleep apnea (Chronic) Body mass index (BMI) 40.0-44.9, adult (Chronic) Chronic diastolic (congestive) heart failure (Chronic) Glaucoma (Chronic) Asthma (Chronic) Hospital Course and Treatment Imaging Results: 03/15/19 19:35 Chest PA and Lateral [RAD] Stat Operations: None Procedures: None Summary of Care Provided: The patient is a 63 year old Female with below past medical history hospitalized after PEA arrest secondary to hypovolemic shock from gastrointestinal bleed, requiring intubation, complicated by NSTEMI, E. Coli UTI, aspiration pneumonia, acute kidney injury, diabetic ketoacidosis, admitted to TCU with debility, here for rehabilitation, strengthening, prior to discharge home with . Discharge to [facility] in [place], outpatient PT/OT at [facility] for oxygen, front wheeled walker. Patient Problems: Active and Suspected Problems Debility (Acute) Acute respiratory failure (Acute) Unresponsive (Acute) Gastrointestinal bleed (Acute) Acute kidney injury (Acute) Anemia (Acute) NSTEMI (non-ST elevated myocardial infarction) (Acute) Hypovolemic shock (Acute) PEA (Pulseless electrical activity) (Acute) Diabetic ketoacidosis (Acute) Cardiac shock syndrome (Acute) Aspiration pneumonia (Acute) E. coli UTI (Acute) - Physical Exam Vitals/I&O's: Vital Signs Temp Pulse Resp BP Pulse Ox 98.1 F 80 18 165/56 H 97 03/15/19 16:00 03/15/19 19:56 03/15/19 19:56 03/15/19 16:00 03/15/19 19:56 Oxygen Flow Rate (L/min) [ 1 AMBULATION with Oxygen] Oxygen Flow Rate (L/min) 1 Oxygen Delivery Method Nasal Cannula Weight: 100.244 kg Body Mass Index (BMI) 43.0 Intake and Output for Last 24 Hours 03/13/19 03/14/19 03/15/19 23:59 23:59 23:59 Intake Total 1410 / 1410 1350 / 1350 840 / 840 Output Total 1600 / 1600 2150 / 2150 1000 / 1000 Balance -190 / -190 -800 / -800 -160 / -160 Laboratory Results 03/14/19 21:18: POC Glucose 304 H 03/15/19 06:15: POC Glucose 217 H 03/15/19 10:55: POC Glucose 296 H 03/15/19 16:49: POC Glucose 244 H Current Medications Acetaminophen (Tylenol) 1,000 mg PO Q6H PRN PRN PRN Reason: Pain Score 1-10/10 Albuterol Sulfate (Ventolin Hfa (Sp)) 2 puff INHALATION Q4H PRN PRN PRN Reason: SOB &/OR WHEEZING Last Admin: 03/15/19 17:28 Dose: 2 puff Documented by: Amlodipine Besylate (Norvasc) 10 mg PO DAILY [facility] Last Admin: 03/15/19 06:15 Dose: 10 mg Documented by: [facility] Admin: 03/15/19 07:50 Dose: 81 mg Documented by: Atorvastatin Calcium (Lipitor) 10 mg PO QHS [facility] Last Admin: 03/14/19 20:52 Dose: 10 mg Documented by: Bacitracin (Bacitracin Ointment) 1 applic TOPICAL BID [facility]; Protocol Last Admin: 03/15/19 17:29 Dose: 1 applicatio Documented by: Bisacodyl (Dulcolax) 10 mg PO DAILY PRN PRN Reason: Constipation Brimonidine Tartrate (Brimonidine 0.2% 5ml Bottle) 1 drop LEFT EYE BID [facility] Last Admin: 03/15/19 17:26 Dose: 1 drop Documented by: Calamine/Phenol (Calmoseptine Ointment) 1 applic TOPICAL BID PRN PRN; Protocol PRN Reason: Erythema Cholecalciferol (Vitamin D) 2,000 unit PO DAILY [facility] Last Admin: 03/15/19 06:15 Dose: 2,000 unit Documented by: Dorzolamide/Timolol (Cosopt Opth Drops) 1 drop LEFT EYE BID [facility] Last Admin: 03/15/19 17:26 Dose: 1 drop Documented by: Fluticasone Propionate (Flonase Nasal [place]) 2 spray NASAL DAILY [facility] Last Admin: 03/15/19 06:11 Dose: 2 spray Documented by: Folic Acid (Folic Acid) 1 mg PO DAILY@0800 [facility] Last Admin: 03/15/19 07:51 Dose: 1 mg Documented by: Furosemide (Lasix) 40 mg PO BID@0600,1400 [facility] Last Admin: 03/15/19 13:29 Dose: 40 mg Documented by: Guaifenesin (Mucinex) 1,200 mg PO Q12 [facility] Last Admin: 03/15/19 17:29 Dose: 1,200 mg Documented by: Hydrocortisone Acetate (Anusol Hc) 25 mg RECTAL BID PRN PRN PRN Reason: Hemorrhoids Insulin Glargine (Lantus (Bkc)) 54 units SC QHS [facility] Insulin Human Lispro (Humalog Kwikpen (Bkc)) 18 unit SC TIDAC [facility] Last Admin: 03/15/19 17:31 Dose: 18 u Documented by: Labetalol HCl (Trandate) 200 mg PO Q8 [facility] Last Admin: 03/15/19 13:29 Dose: 200 mg Documented by: Latanoprost (Xalatan Opthalmic) 1 drop LEFT EYE QHS [facility] Last Admin: 03/14/19 20:45 Dose: 1 drop Documented by: Losartan Potassium (Cozaar) 100 mg PO DAILY [facility] Last Admin: 03/15/19 06:15 Dose: 100 mg Documented by: Melatonin (Melatonin) 10 mg PO QHS [facility] Last Admin: 03/14/19 20:52 Dose: 10 mg Documented by: Multivitamins/Minerals (Multivitamin With Minerals) 1 tablet PO DAILY@0800 [facility] Last Admin: 03/15/19 07:51 Dose: 1 tablet Documented by: Nystatin (Mycostatin Powder) 1 applic TOPICAL BID PRN PRN; Protocol PRN Reason: Erythema Pantoprazole Sodium (Protonix) 40 mg PO DAILY [facility] Last Admin: 03/15/19 06:15 Dose: 40 mg Documented by: Polyethylene Glycol (Miralax) 17 gm PO DAILY [facility] Last Admin: 03/15/19 06:15 Dose: Not Given Documented by: Polysaccharide Iron Complex (Ferrex 150) 150 mg PO DAILYCM [facility] Last Admin: 03/15/19 07:50 Dose: 150 mg Documented by: Senna/Docusate Sodium (Senokot-S, Jennifer-Colace) 2 tablet PO BID [facility] Last Admin: 03/15/19 17:30 Dose: 1 tablet Documented by: Sodium Chloride ([place] Nasal [place]) 2 spray NASAL TID PRN PRN PRN Reason: dry nares Last Admin: 03/15/19 17:27 Dose: 2 spray Documented by: Sodium Chloride (Sodium Chl 3ml) 3 ml INHALATION BID.RT [facility] Last Admin: 03/15/19 19:50 Dose: 3 ml Documented by: Discharge Diet: No Restrictions Discharge Activity: Return to Normal Activity, May Shower, Use Walker Weight Bearing Status: Weight bearing as tolerated Call your doctor if you observe: Fever of 101 or Higher, Inability to urinate, Inability to have a bowel movement, Shortness of breath, Chest pain, Uncontrolled pain Home Medications: Medications to take at Discharge Aspirin [Aspirin, Baby] 1 tablet PO DAILY 05/29/16 Brimonidine Tartrate 0.2% [Brimonidine 0.2% 5Ml Bottle] 1 drop LEFT EYE BID 05/29/16 Centrum Silver Tablet 1 tab PO DAILY 05/29/16 Cholecalciferol (Vitamin D3) [Vitamin D3] 2 tab PO DAILY 05/29/16 Dorzolamide HCl/Timolol Maleat [Dorzolamide-Timolol Eye Drops] 1 drop LEFT EYE Q12H PRN 05/29/16 Folic Acid 1 mg PO DAILY@0800 05/29/16 Insulin Glargine,Hum.rec.anlog [Lantus] 55 units SQ QHS 05/29/16 Latanoprost 0.005% [Xalatan Opthalmic] 1 drop LEFT EYE QHS 05/29/16 Guaifenesin [Mucinex] 1,200 mg PO Q12H 03/01/19 Insulin Lispro [Humalog KwikPen] 14 unit SQ BREAKFAST 03/01/19 Insulin Lispro [Humalog KwikPen] 22 unit SQ 1200,1700 03/01/19 Sodium Chloride 0.65% [[place] Nasal [place]] 2 spray NASAL BID PRN PRN 03/01/19 Timolol 0.5% [Timoptic] 1 drp LEFT EYE BID 03/01/19 Triamcinolone Acetonide [Nasacort Aq Nasal [place]] 2 spray NASAL DAILY 03/01/19 Acetaminophen [Tylenol] 1,000 mg PO Q6H PRN PRN tablet 03/15/19 Albuterol Inhaler [Ventolin Hfa] 2 puff INHALATION Q4H PRN PRN #1 inhaler 03/15/19 Amlodipine Besylate [Norvasc] 10 mg PO DAILY #14 tab 03/15/19 Atorvastatin Calcium [Lipitor] 10 mg PO QHS #14 tab 03/15/19 Bacitracin Ointment 1 applic TOPICAL BID tube 03/15/19 Furosemide 40 mg PO DAILY #14 tab 03/15/19 Iron Polysaccharide Complex [Ferrex 150] 150 mg PO DAILYCM #14 cap 03/15/19 Labetalol [Trandate (Beta [place])] 200 mg PO Q8H #42 tab 03/15/19 Losartan Potassium [Cozaar] 100 mg PO DAILY #30 tab 03/15/19 Melatonin 10 mg PO QHS tablet 03/15/19 Menthol/Lanolin/Calamine/Znox [Calmoseptine Ointment] 1 applic TOPICAL BID PRN PRN tube 03/15/19 Nystatin Powder [Mycostatin Powder] 1 applic TOPICAL BID PRN PRN bottle 03/15/19 Pantoprazole Sodium [Protonix] 40 mg PO DAILY #30 tab 03/15/19 Sodium Chloride For Inhalation [Hyper-Russell] 4 ml IH BID #30 vial.neb 03/15/19 Following Prescrptions Were Given to Patient: Losartan Potassium [Cozaar] 100 mg PO DAILY #30 tab Prescription Printed Iron Polysaccharide Complex [Ferrex 150] 150 mg PO DAILYCM #14 cap Prescription Printed Furosemide 40 mg PO DAILY #14 tab Prescription Printed Sodium Chloride For Inhalation [Hyper-[place]] 4 ml IH BID #30 vial.neb Prescription Printed Atorvastatin Calcium [Lipitor] 10 mg PO QHS #14 tab Prescription Printed Amlodipine Besylate [Norvasc] 10 mg PO DAILY #14 tab Prescription Printed Pantoprazole Sodium [Protonix] 40 mg PO DAILY #30 tab Prescription Printed Labetalol [Trandate (Beta [place])] 200 mg PO Q8H #42 tab Prescription Printed Albuterol Inhaler [Ventolin Hfa] 2 puff INHALATION Q4H PRN PRN #1 inhaler PRN Reason: Sob &/Or Wheezing Prescription Printed Primary Care Physician: Casey Barlow MD [Primary Care Provider] - Please follow up with your Primary Care Physician in: 1 week. Please Follow Up With: DU ROBERTS When: [phone] Please Follow Up With: Buddy Payne DO Please Follow Up With: sleep study When: per cardiovascular doctor (Buddy PAYNE) Disposition: Home Minutes spent on discharge:: 30 Patient Condition:: Stable Medical Necessity - Tobacco Use Smoking Status: Never smoker Tobacco Use: Non-smoker Meaningful Use Info Meaningful Use Diagnoses (Choose all that apply): None applicable
[2019-03-15 21:10] LABS: Bedside Glucose 268 mg/dL (70-110)
[2019-03-15] MEDS: Atorvastatin Calcium 10 MG Tablet PO (22:00)
[2019-03-15] MEDS: MELATONIN 10 MG TABLET PO (22:00)
[2019-03-15] MEDS: Latanoprost 0.005% 1 Bottle 1 DRP LEFT EYE (22:00)
--- NOTE | 2019-03-16 02:00 | NURSING ---
Addendum entered by Gema Callahan 03/16/19 06:14: left with SW Original Note: Pt currently on O2 5L via NC while resting with eyes closed in recliner and snoring, SPO2 97%. O2 removed. While on room air pt's SPO2 dropped to 84%. Oxygen reapplied, SPO2 97%. Will continue to monitor.
[2019-03-16] MEDS: guaiFENesin 600 MG Tablet 1200 MG PO (05:24)
[2019-03-16] MEDS: Furosemide 40 MG Tablet PO (05:25)
[2019-03-16] MEDS: amLODIPine 10 MG Tablet PO (05:25)
[2019-03-16] MEDS: Pantoprazole Sodium 40 MG Tablet PO (05:25)
[2019-03-16] MEDS: Senna/Docusate Sodium 1 Tablet 2 TABLET PO (05:25)
[2019-03-16] MEDS: Losartan Potassium 100 MG Tablet PO (05:25)
[2019-03-16] MEDS: Fluticasone 0.05% 1 SPRAY NASAL.SRY 2 SPRAY NASAL (05:26)
[2019-03-16] MEDS: Labetalol 200 MG Tablet PO (05:26)
[2019-03-16] MEDS: BRIMONIDINE 0.2% 5ML BOTTLE 1 DRP LEFT EYE (05:26)
[2019-03-16] MEDS: Menthol/Lanolin/Calamine/Znox 113 GM Tube 1 APPLIC TOPICAL (05:26)
[2019-03-16] MEDS: Nystatin Powder 15gm Bottle 1 APPLIC TOPICAL (05:27)
[2019-03-16] MEDS: BACITRACIN 15 GM Tube 1 APPLIC TOPICAL (05:28)
[2019-03-16] MEDS: Dorzolamide HCL/Timolol 10 ml Bottle 1 DRP LEFT EYE (05:32)
[2019-03-16 05:39] LABS: Absolute Neutrophil Count 4.2 X10^3/uL (2.0-7.7); Basophil# 0.05 X10^3/uL; Basophil% 0.7 % (0-1); Eosinophil# 0.25 X10^3/uL; Eosinophils% 3.4 % (0-5); Hematocrit 27.4 % (37-47); Hemoglobin 8.6 g/dL (12.0-15.0); Lymphocyte % 26.2 % (19-41); Mean Corp Hgb Conc 31.4 g/dL (32-36); Mean Corpuscular Hgb 30.5 pg (27.0-32.0); Mean Corpuscular Volume 97.2 fL (81-99); Mean Platelet Vol. 9.8 fl (6.2-12.0); Monocyte# 0.78 X10^3/uL; Monocyte% 10.8 % (0-10); NRBC Flagged by Analyzer 0 % (0-5); Neutrophil # 4.24 X10^3/uL (2.7-7.7); Neutrophil % 58.5 % (47-70); Platelet Count 206 K/mm3 (150-450); RBC Distribution Width CV 15.3 % (11.6-14.6); RBC Distribution Width SD 54.4 fl (35.1-43.9); Red Blood Count 2.82 M/mm3 (4.2-5.4); White Blood Count 7.3 K/mm3 (4.4-11.0)
[2019-03-16 06:01] LABS: Anion Gap 5 (5-15); BUN 31 mg/dL (7-18); BUN/Creat Ratio 27.4 RATIO (10-20); Calcium,Total 9.2 mg/dL (8.5-10.1); Chloride 100 mmol/L (98-107); Creatinine, Serum 1.13 mg/dL (0.55-1.02); EST Glomerular Filtration Rate 51 mL/min (>60); Est Glom Filt Rate - Afr Amer 62 mL/min (>60); Estimated Creatinine Clearance 37.45 ml/min; Glucose 225 mg/dL (74-106); Potassium 4.8 mmol/L (3.5-5.1); Sodium Level 140 mmol/L (136-145)
[2019-03-16 06:46] LABS: Bedside Glucose 230 mg/dL (70-110)
[2019-03-16] MEDS: Multivitamins,Ther W-Minerals Tablet 1 TABLET PO (08:02)
[2019-03-16] MEDS: Iron Polysaccharide Complex 150 MG CAPSULE PO (08:02)
[2019-03-16] MEDS: Folic Acid 1 MG Tablet PO (08:02)
[2019-03-16] MEDS: Aspirin 81 MG TAB.CHEW PO (08:02)
[2019-03-16] MEDS: Insulin Lispro 100 UNIT/ML INSULN.PEN 18 UNIT SC ×2 (08:04→12:09)
[2019-03-16] MEDS: Sodium Chloride 0.65% 1 SPRAY SPRAY.BTL 2 SPRAY NASAL (09:06)
--- NOTE | 2019-03-16 10:10 | CASEMGMT ---
Social Work Faxed updated script and documentation for O2 and for a nebulizer to continue aerosols to [employer]. Provided pt with Social Service Rack Card to complete Advanced Directives after DC, if pt chooses. Kenna Coello, OSCAR DOUGLASW
[2019-03-16 10:41] LABS: Bedside Glucose 308 mg/dL (70-110)
[2019-03-16 13:50] VITALS: BP 136/50; PULSE 76; RESP 18; TEMP 37; O2SAT 95
== END 2019-03-16 12:45 | disposition home or self-care (01) | DRG 281 ==
PROVIDERS: Admitting Provider Family Medicine Geriatric Medicine; Family Provider Internal Medicine; PCP Internal Medicine; Referring Provider Family Medicine Geriatric Medicine; Visit Provider Family Medicine Geriatric Medicine
DX: I21.4 Non-ST elevation (NSTEMI) myocardial infarction (principal); I50.32 Chronic diastolic (congestive) heart failure; K92.2 Gastrointestinal hemorrhage, unspecified; I11.0 Hypertensive heart disease with heart failure; I25.10 Atherosclerotic heart disease of native coronary artery without angina pectoris; E78.5 Hyperlipidemia, unspecified; G47.33 Obstructive sleep apnea (adult) (pediatric); K21.9 Gastro-esophageal reflux disease without esophagitis; H40.9 Unspecified glaucoma; E55.9 Vitamin D deficiency, unspecified; E11.9 Type 2 diabetes mellitus without complications; J45.909 Unspecified asthma, uncomplicated; Z87.440 Personal history of urinary (tract) infections; Z87.01 Personal history of pneumonia (recurrent); Z86.74 Personal history of sudden cardiac arrest
CPT/HCPCS: 36415; 71046; 74018; 80048; 82962; 85014; 85018; 85025; 94640; 94668; 94762; 97110; 97116; 97162; 97166; 97530; 97535; 97802

== ENCOUNTER 2020-07-16 08:17 | Outpatient (RCR) | payer MEDICARE, SELFPAY ==
[2020-07-16] MEDS: COVID-19 VACC, MRNA(PFIZER)/PF 30 MCG/0.3 ML SYRINGE IM (14:02)
[2020-08-06] MEDS: COVID-19 VACC, MRNA(PFIZER)/PF 30 MCG/0.3 ML SYRINGE IM (14:07)
== END 2020-10-15 23:59 ==
LOC: IMMUN 08:17
PROVIDERS: PCP Internal Medicine; Visit Provider Family Medicine
DX: Z23 Encounter for immunization (principal)
CPT/HCPCS: 0001A; 0002A; 91300